=== PATIENT | male | born 1950 | race Caucasian/White ===

== ENCOUNTER 2016-10-31 07:41 | Inpatient (IN) | payer MEDICARE, OTHER ==
[2016-10-31] MEDS ORDERED: ALGINIC AC PO PRN (18:28)
[2016-10-31] MEDS ORDERED: MAG CARB PO PRN (18:28)
[2016-10-31] MEDS ORDERED: AL HYDROX PO PRN (18:28)
[2016-10-31] MEDS ORDERED: Non-Formulary Item 1 EACH (Ondansetron Hcl [Zofran] 4 MG) PO PRN (18:28)
[2016-10-31] MEDS: Acetaminophen/Codeine 30-300mg Tablet PO PRN (18:52)
[2016-10-31] MEDS: buPROPion HCl 100 MG TAB PO SCH (21:16)
[2016-10-31] MEDS: Metoprolol Tartrate 25 MG TAB PO SCH (21:16)
[2016-10-31] MEDS: Simvastatin 40 MG TAB PO SCH (21:17)
[2016-11-01] MEDS: Acetaminophen/Codeine 30-300mg Tablet PO PRN ×4 (01:14→22:22)
[2016-11-01] MEDS: Levothyroxine Sodium 100 MCG TAB PO SCH (05:50)
[2016-11-01] MEDS: Folic Acid 1 MG TAB PO SCH (09:03)
[2016-11-01] MEDS: Multivit, Therapeutic 1 TAB PO SCH (09:04)
[2016-11-01] MEDS: buPROPion HCl 100 MG TAB PO SCH ×2 (09:04→20:48)
[2016-11-01] MEDS: Lisinopril 5 MG TAB PO SCH ×2 (09:04→09:08)
[2016-11-01] MEDS: Escitalopram Oxalate 10 mg Tablet PO SCH (09:04)
[2016-11-01] MEDS: Fish Oil 1,000 MG CAP PO SCH ×2 (09:05→09:06)
[2016-11-01] MEDS: Digoxin 0.125 MG TAB PO SCH (09:05)
[2016-11-01] MEDS: Furosemide 40 MG TAB PO SCH ×2 (09:05→09:08)
[2016-11-01] MEDS: Metoprolol Tartrate 25 MG TAB PO SCH ×3 (09:05→20:48)
[2016-11-01] MEDS: Docusate 100 MG CAP PO SCH (09:06)
[2016-11-01] MEDS: ZINC SULFATE PO SCH (11:56)
[2016-11-01] MEDS: Simvastatin 40 MG TAB PO SCH (20:50)
[2016-11-02] MEDS: Acetaminophen/Codeine 30-300mg Tablet PO PRN ×3 (05:13→20:47)
[2016-11-02] MEDS: Levothyroxine Sodium 100 MCG TAB PO SCH (05:14)
--- NOTE | 2016-11-02 06:42 | HP ---
DATE OF ADMISSION: 10/31/2016 ATTENDING: Tabitha Stevens M.D. PRIMARY CARE PHYSICIAN: Aiden Ortiz M.D. REASON FOR ADMISSION: Skilled rehabilitation in [facility]. HISTORY OF PRESENT ILLNESS AND HOSPITAL COURSE: Mr. Almonte is a 66-year-old male with history of chronic alcoholism, frequent falls, abnormality of gait, hypertension, paroxysmal atrial fibrillation, chronic systolic heart failure and moderate coronary artery disease. Patient was transferred from [facility] in [place] after he was treated for altered mental status. Patient was a previous resident of [facility] under Dr. Aiden Ortiz's care. Per records, patient has been having frequent falls. He was initially sent to [facility] due to a fall. Then [facility] after he was given potassium chloride and fentanyl. He fell again in the penitentiary and was brought back to the emergency room, where he was reported to have alteration in mental status. Radiological images in the emergency room , ruled out fractures of any kind. He was found to have bilateral lower extremity edema as well as ascites and anasarca. The patient had a CT scan of the abdomen and pelvis, which showed no evidence of any acute traumatic injury per record. There was moderate volume ascites and some anasarca, a small bilateral pleural effusions and bilateral renal cysts, some mild bilateral nephrolithiasis without any obstructive uropathy and laparoscopic gastric band. There was no significant change from the previous study on 10/23/2016 per report. There was also a CT scan of the brain done, that showed no evidence of any acute intracranial abnormality. UTI was ruled out at that time. His white count remained normal. He remained afebrile. Ammonia level and thyroid function tests were also normal per report. He was seen by neurologist at that time due to altered mental status and it was felt that it was a result of his underlying chronic medical conditions that actually improved during the course of his hospital stay. At the time of date of discharge he was reported to be at baseline level of mental status as verified by his spouse per report. The patient was generally weak prior to discharge and was deemed severely deconditioned requiring rehabilitation. After rearranging facilities for halfway, it was a decision of the family to transfer to [facility] and not to go back to the previous facility where he was from. Upon admission, the patient has been stable. He had a smooth overnight course. He has been awake, alert, and able to express his needs. When seen today, the patient was resting in his bed. He is hard of hearing, but able to respond appropriately and answer questions as long as he heard the queries right. He reports that he is still weak and unable to ambulate at this time. No other new issues reported. The patient is a poor historian, most of the inflow of the history were taken from his medical records. PAST MEDICAL HISTORY: Hypertension, obesity, dyslipidemia, GERD, asthma, hypothyroidism, paroxysmal atrial fibrillation, chronic systolic heart failure, moderate coronary artery disease, history of medical noncompliance, history of unsteady gait and chronic alcoholism. PAST SURGICAL HISTORY: Laparoscopic gastric banding, cholecystectomy, left knee replacement, right ankle surgery, tonsillectomy, adenoidectomy, cholecystectomy, umbilical hernia repair. PSYCHIATRIC HISTORY: Anxiety, depression. SOCIAL HISTORY: History of alcoholism. He denies smoking. He denies any other illicit drug abuse. FAMILY HISTORY: Noncontributory. ALLERGIES: NKDA. CURRENT MEDICATIONS: Zocor 40 mg p.o. at bedtime, Synthroid 175 mcg p.o. daily , Toprol-XL 12.5 mg twice daily, aspirin 81 mg p.o. daily, folic acid 1 mg p.o. daily, Protonix 40 mg twice daily, acetaminophen with codeine, Tylenol #3 one tab q.6 hours p.r.n., amiodarone 200 mg p.o. daily, digoxin 0.125 mg p.o. daily , docusate 100 mg p.o. daily, Lexapro 20 mg p.o. daily, fish oil 1000 mg p.o. daily, folic acid 1 mg p.o. daily, furosemide 40 mg p.o. daily, levothyroxine should be 100 mcg p.o. daily, lisinopril 2.5 mg p.o. daily, metoprolol 12.5 mg p.o. b.i.d., multivitamins 1 tablet p.o. daily, Wellbutrin 100 mg p.o. b.i.d. REVIEW OF SYSTEMS: General: Denies fever or chills. Reports fatigue and general weakness, unknown weight changes with good appetite. HEENT: No acute visual changes or hearing changes. Of note, he is hard of hearing and wears hearing aid. Respiratory: Denies acute shortness of breath, wheezing or sputum production, bloody sputum, pain with breathing.Cardiac: No active chest pain, palpitations, cyanosis, or paroxysmal nocturnal dyspnea. He has history of bilateral lower leg edema/anasarca. GI: No nausea, vomiting, abdominal pain , diarrhea, constipation. Genitourinary: No urgency, frequency, dysuria, nocturia. He is voiding freely with dark urine. Musculoskeletal: Reports intermittent arthralgia/myalgia. Neuro: No focal numbness, focal weakness, seizures, tics or tremors. Psychiatric: Reports anxiety, depression. No hallucinations. No suicidal thoughts. SKIN: No pruritus, jaundice. PHYSICAL EXAMINATION: VITAL SIGNS: Blood pressure 108/62, temperature 97.4, pulse 61, respiration rate 18, O2 sats 94% at room air. GENERAL: The patient is awake, alert, oriented x2. He answers questions with appropriateness if he hears the queries right. Comfortable in exam. No obvious acute distress. HEENT: Atraumatic. PERRL, intact EOM. Anicteric sclerae. Oral mucosa is moist. NECK: Supple. No LAD, no JVD, no meningeal signs of irritation. LUNGS: Normal excursion, nonlabored breathing. No rales, no rhonchi or wheezes. CARDIAC: Rate controlled. Normal S1 and S2. No murmurs. ABDOMEN: Obese with ascites. Positive bowel sounds in 4 quadrants, nontender. No guarding, no rigidity, no rebound. Negative CVA tenderness bilaterally. EXTREMITIES: Bilateral leg edema, pitting 2+. Right knee slightly swollen compared to the left, no erythema noted.Not warmth to touch. NEUROLOGIC: Nonfocal, moves all extremities symmetrically. Speech normal, DTRs 2+ unsteady gait. LABORATORY: Most recent labs 10/31/2016, WBC 4.4, hemoglobin 11.8, hematocrit 36.7, MCV 99.9, platelets 224. Chemistry 10/31/2016, sodium 136, potassium 3.2 , chloride 100, carbon dioxide 29, BUN 13, creatinine 0.73, estimated GFR 90, glucose 64, POC glucose 84, calcium 8, ammonia on 10/28/2016 was 47, repeat at 10/28/2016 at 1219 was 49. Toxicology 10/26 digoxin less than 0.15, salicylate is less than, acetaminophen less than, plasma alcohol less than 10, opioids detected on 10/25/2016, benzos detected on 10/25/2016. ASSESSMENT AND PLAN: 1. Physical deconditioning. 2. Acute on chronic systolic heart failure. 3. Encephalopathy, unspecified, improved, now back to baseline mental status. 4. ETOH abuse and complicated with ascites and anasarca, which appears to be a chronic finding, asymptomatic. 5. Hypertension. 6. Anxiety, depression. 7. General weakness. 8. Unsteady gait. 9. History of falls. The patient is admitted to [facility] for purposes of skilled rehabilitation. PT, OT will be consulted for strengthening and gait training. We will continue all current medications. Routine digoxin, renal electrolytes and renal function monitoring. Fall precautions. Gastrointestinal prophylaxis with PPI. Deep venous thrombosis prophylaxis with SCD. Further recommendations depending on the hospital course. ESTIMATED LENGTH OF STAY: 1-2 weeks. CODE STATUS: The patient reports FULL CODE. MTDD
[2016-11-02] MEDS: Escitalopram Oxalate 10 mg Tablet PO SCH (08:15)
[2016-11-02] MEDS: Folic Acid 1 MG TAB PO SCH (08:15)
[2016-11-02] MEDS: Digoxin 0.125 MG TAB PO SCH (08:15)
[2016-11-02] MEDS: Lisinopril 5 MG TAB PO SCH (08:16)
[2016-11-02] MEDS: Fish Oil 1,000 MG CAP PO SCH ×2 (08:16→08:22)
[2016-11-02] MEDS: Multivit, Therapeutic 1 TAB PO SCH (08:16)
[2016-11-02] MEDS: buPROPion HCl 100 MG TAB PO SCH ×2 (08:16→20:43)
[2016-11-02] MEDS: Furosemide 40 MG TAB PO SCH (08:16)
[2016-11-02] MEDS: Metoprolol Tartrate 25 MG TAB PO SCH ×2 (08:17→20:44)
[2016-11-02] MEDS: Docusate 100 MG CAP PO SCH (08:17)
[2016-11-02] MEDS: ZINC SULFATE PO SCH (08:24)
[2016-11-02] MEDS ORDERED: traMADol HCl 50 MG TAB PO PRN (10:39)
[2016-11-02] MEDS ORDERED: Potassium Chloride 20 MEQ TAB PO SCH (10:45)
[2016-11-02] MEDS: Simvastatin 40 MG TAB PO SCH (20:43)
[2016-11-03] MEDS: Levothyroxine Sodium 100 MCG TAB PO SCH (05:22)
[2016-11-03 07:33] LABS: Digoxin 0.78 ng/mL (0.8-2.0)
[2016-11-03 07:35] LABS: ALT (SGPT) 20 U/L (8-55); AST (SGOT) 33 U/L (5-34); Albumin 2.3 g/dL (3.4-4.8); Alkaline Phosphatase 87 U/L (40-150); Anion Gap 11 mmol/L (10-20); BUN (Urea Nitrogen) 10 mg/dL (8.4-25.7); Bilirubin, Total 1.1 mg/dL (0.2-1.2); Calc. Creatinine Clearance 194 mL/min (70-130); Carbon Dioxide 31 mmol/L (23-31); Chloride 98 mmol/L (98-107); Estimated GFR-MDRD Greater than 90; Globulin 2.4 g/dL (2.4-3.5); Glucose 87 mg/dL (80-115); Protein, Total 4.7 g/dL (5.8-8.1); Sodium 137 mmol/L (136-145)
[2016-11-03] MEDS: Furosemide 40 MG TAB PO SCH (07:47)
[2016-11-03] MEDS: Potassium Chloride 20 MEQ TAB PO SCH (07:47)
[2016-11-03 08:51] LABS: #Basophils 0.1 thou/uL (0.0-0.2); #Eosinphils 0.3 thou/uL (0.0-0.7); #Lymphocytes 1.6 thou/uL (1.20-3.40); #Monocytes 0.6 thou/uL (0.11-0.59); #Neutrophils 3.1 thou/uL (1.40-6.50); %Eosinophils 4.8 % (0.0-10.0); %Lymphocytes 29.2 % (21.0-51.0); %Monocytes 10.4 % (0.0-10.0); %Neutrophils 54.6 % (42.0-75.0); Hemoglobin 11.6 g/dL (14.0-18.0); Mean Corpuscular Hemoglobin 32.7 pg (27.0-31.0); Mean Corpuscular Volume 96.1 fl (80.0-94.0); Mean Platelet Volume 8.2 fL (7.4-10.4); Platelet Count 200 thou/uL (130-400); RBC Distribution Width 15.5 % (11.5-14.5); Red Blood Cell (RBC) Count 3.54 mill/uL (4.70-6.10); White Blood Cell (WBC) Count 5.6 thou/uL (4.8-10.8)
[2016-11-03] MEDS: Lisinopril 5 MG TAB PO SCH (09:24)
[2016-11-03] MEDS: Multivit, Therapeutic 1 TAB PO SCH (09:24)
[2016-11-03] MEDS: Digoxin 0.125 MG TAB PO SCH (09:24)
[2016-11-03] MEDS: buPROPion HCl 100 MG TAB PO SCH ×2 (09:24→20:34)
[2016-11-03] MEDS: Fish Oil 1,000 MG CAP PO SCH (09:25)
[2016-11-03] MEDS: Folic Acid 1 MG TAB PO SCH (09:25)
[2016-11-03] MEDS: Escitalopram Oxalate 10 mg Tablet PO SCH (09:25)
[2016-11-03] MEDS: Docusate 100 MG CAP PO SCH (09:25)
[2016-11-03] MEDS: Metoprolol Tartrate 25 MG TAB PO SCH ×2 (09:26→20:34)
[2016-11-03] MEDS: ZINC SULFATE PO SCH (09:27)
[2016-11-03] MEDS ORDERED: Mag-Al Plus 1200 MG/1200 MG/120 MG/30 ML UDCUP PO PRN (09:55)
[2016-11-03] MEDS ORDERED: Zinc Gluconate 50 MG TAB PO SCH (12:00)
[2016-11-03] MEDS: Acetaminophen/Codeine 30-300mg Tablet PO PRN ×2 (12:04→19:14)
[2016-11-03] MEDS: Simvastatin 40 MG TAB PO SCH (20:34)
[2016-11-04] MEDS ORDERED: traMADol HCl 50 MG TAB PO PRN (06:16)
[2016-11-04] MEDS: Levothyroxine Sodium 100 MCG TAB PO SCH (06:21)
[2016-11-04] MEDS: Potassium Chloride 20 MEQ TAB PO SCH (07:22)
[2016-11-04] MEDS: Furosemide 40 MG TAB PO SCH (07:22)
[2016-11-04] MEDS: buPROPion HCl 100 MG TAB PO SCH ×2 (08:17→20:51)
[2016-11-04] MEDS: Escitalopram Oxalate 10 mg Tablet PO SCH (08:18)
[2016-11-04] MEDS: Fish Oil 1,000 MG CAP PO SCH (08:18)
[2016-11-04] MEDS: Digoxin 0.125 MG TAB PO SCH (08:18)
[2016-11-04] MEDS: Folic Acid 1 MG TAB PO SCH (08:18)
[2016-11-04] MEDS: Metoprolol Tartrate 25 MG TAB PO SCH ×2 (08:18→20:53)
[2016-11-04] MEDS: Multivit, Therapeutic 1 TAB PO SCH (08:19)
[2016-11-04] MEDS: Lisinopril 5 MG TAB PO SCH (08:19)
[2016-11-04] MEDS: Docusate 100 MG CAP PO SCH (08:20)
[2016-11-04] MEDS: Acetaminophen/Codeine 30-300mg Tablet PO PRN ×3 (08:22→21:23)
[2016-11-04] MEDS: Zinc Gluconate 50 MG TAB PO SCH (08:22)
[2016-11-04] MEDS: Simvastatin 40 MG TAB PO SCH (20:53)
[2016-11-05] MEDS: Levothyroxine Sodium 100 MCG TAB PO SCH (05:47)
[2016-11-05] MEDS: Acetaminophen/Codeine 30-300mg Tablet PO PRN ×3 (05:49→22:04)
[2016-11-05] MEDS: Metoprolol Tartrate 25 MG TAB PO SCH ×2 (08:10→21:07)
[2016-11-05] MEDS: Zinc Gluconate 50 MG TAB PO SCH (08:10)
[2016-11-05] MEDS: Potassium Chloride 20 MEQ TAB PO SCH (08:10)
[2016-11-05] MEDS: Furosemide 40 MG TAB PO SCH (08:10)
[2016-11-05] MEDS: buPROPion HCl 100 MG TAB PO SCH ×2 (08:11→21:06)
[2016-11-05] MEDS: Lisinopril 5 MG TAB PO SCH (08:11)
[2016-11-05] MEDS: Multivit, Therapeutic 1 TAB PO SCH (08:11)
[2016-11-05] MEDS: Digoxin 0.125 MG TAB PO SCH (08:11)
[2016-11-05] MEDS: Escitalopram Oxalate 10 mg Tablet PO SCH (08:11)
[2016-11-05] MEDS: Docusate 100 MG CAP PO SCH (08:11)
[2016-11-05] MEDS: Folic Acid 1 MG TAB PO SCH (08:14)
[2016-11-05] MEDS: Fish Oil 1,000 MG CAP PO SCH (08:14)
[2016-11-05] MEDS: Simvastatin 40 MG TAB PO SCH (21:06)
[2016-11-06] MEDS: Levothyroxine Sodium 100 MCG TAB PO SCH (06:14)
[2016-11-06] MEDS: Furosemide 40 MG TAB PO SCH (06:15)
[2016-11-06] MEDS: Acetaminophen/Codeine 30-300mg Tablet PO PRN ×2 (07:27→16:34)
[2016-11-06] MEDS: Zinc Gluconate 50 MG TAB PO SCH (08:18)
[2016-11-06] MEDS: Potassium Chloride 20 MEQ TAB PO SCH (08:18)
[2016-11-06] MEDS: Lisinopril 5 MG TAB PO SCH (08:18)
[2016-11-06] MEDS: Multivit, Therapeutic 1 TAB PO SCH (08:18)
[2016-11-06] MEDS: Escitalopram Oxalate 10 mg Tablet PO SCH (08:19)
[2016-11-06] MEDS: buPROPion HCl 100 MG TAB PO SCH ×2 (08:19→20:42)
[2016-11-06] MEDS: Fish Oil 1,000 MG CAP PO SCH (08:19)
[2016-11-06] MEDS: Digoxin 0.125 MG TAB PO SCH (08:19)
[2016-11-06] MEDS: Metoprolol Tartrate 25 MG TAB PO SCH ×2 (08:20→20:43)
[2016-11-06] MEDS: Docusate 100 MG CAP PO SCH (08:20)
[2016-11-06] MEDS: Folic Acid 1 MG TAB PO SCH (08:20)
[2016-11-06] MEDS: Simvastatin 40 MG TAB PO SCH (20:43)
[2016-11-07] MEDS: Acetaminophen/Codeine 30-300mg Tablet PO PRN ×3 (01:16→16:57)
[2016-11-07] MEDS: Levothyroxine Sodium 100 MCG TAB PO SCH ×2 (05:58→05:59)
[2016-11-07] MEDS: Furosemide 40 MG TAB PO SCH (07:58)
[2016-11-07] MEDS: Potassium Chloride 20 MEQ TAB PO SCH (07:58)
[2016-11-07] MEDS: Metoprolol Tartrate 25 MG TAB PO SCH ×2 (08:58→20:34)
[2016-11-07] MEDS: Zinc Gluconate 50 MG TAB PO SCH (08:58)
[2016-11-07] MEDS: buPROPion HCl 100 MG TAB PO SCH ×2 (08:59→20:33)
[2016-11-07] MEDS: Fish Oil 1,000 MG CAP PO SCH (08:59)
[2016-11-07] MEDS: Folic Acid 1 MG TAB PO SCH (09:00)
[2016-11-07] MEDS: Lisinopril 5 MG TAB PO SCH (09:00)
[2016-11-07] MEDS: Digoxin 0.125 MG TAB PO SCH (09:00)
[2016-11-07] MEDS: Escitalopram Oxalate 10 mg Tablet PO SCH (09:00)
[2016-11-07] MEDS: Multivit, Therapeutic 1 TAB PO SCH (09:01)
[2016-11-07] MEDS: Docusate 100 MG CAP PO SCH (09:01)
[2016-11-07] MEDS: Simvastatin 40 MG TAB PO SCH (20:34)
[2016-11-07] MEDS ORDERED: Acetaminophen/Codeine 30-300mg Tablet PO SCH (21:15)
[2016-11-08] MEDS: Furosemide 40 MG TAB PO SCH (08:23)
[2016-11-08] MEDS: Potassium Chloride 20 MEQ TAB PO SCH (08:23)
[2016-11-08] MEDS: Fish Oil 1,000 MG CAP PO SCH (08:31)
[2016-11-08] MEDS: buPROPion HCl 100 MG TAB PO SCH ×2 (08:32→20:15)
[2016-11-08] MEDS: Zinc Gluconate 50 MG TAB PO SCH (08:32)
[2016-11-08] MEDS: Docusate 100 MG CAP PO SCH (08:33)
[2016-11-08] MEDS: Digoxin 0.125 MG TAB PO SCH (08:33)
[2016-11-08] MEDS: Folic Acid 1 MG TAB PO SCH (08:33)
[2016-11-08] MEDS: Multivit, Therapeutic 1 TAB PO SCH (08:33)
[2016-11-08] MEDS: Escitalopram Oxalate 10 mg Tablet PO SCH (08:33)
[2016-11-08] MEDS: Metoprolol Tartrate 25 MG TAB PO SCH ×2 (08:34→20:14)
[2016-11-08] MEDS: Lisinopril 5 MG TAB PO SCH (08:34)
[2016-11-08] MEDS: Acetaminophen/Codeine 30-300mg Tablet PO PRN ×2 (14:19→20:15)
[2016-11-08] MEDS: Simvastatin 40 MG TAB PO SCH (20:15)
[2016-11-09] MEDS: Acetaminophen/Codeine 30-300mg Tablet PO PRN ×3 (03:54→19:33)
[2016-11-09] MEDS: Levothyroxine Sodium 100 MCG TAB PO SCH (06:17)
[2016-11-09] MEDS: Furosemide 40 MG TAB PO SCH (08:14)
[2016-11-09] MEDS: Potassium Chloride 20 MEQ TAB PO SCH (08:14)
[2016-11-09] MEDS: buPROPion HCl 100 MG TAB PO SCH ×2 (08:18→21:17)
[2016-11-09] MEDS: Zinc Gluconate 50 MG TAB PO SCH (08:18)
[2016-11-09] MEDS: Multivit, Therapeutic 1 TAB PO SCH (08:18)
[2016-11-09] MEDS: Fish Oil 1,000 MG CAP PO SCH (08:18)
[2016-11-09] MEDS: Docusate 100 MG CAP PO SCH (08:18)
[2016-11-09] MEDS: Folic Acid 1 MG TAB PO SCH (08:19)
[2016-11-09] MEDS: Escitalopram Oxalate 10 mg Tablet PO SCH (08:19)
[2016-11-09] MEDS: Lisinopril 5 MG TAB PO SCH (08:19)
[2016-11-09] MEDS: Digoxin 0.125 MG TAB PO SCH (08:20)
[2016-11-09] MEDS: Metoprolol Tartrate 25 MG TAB PO SCH ×2 (08:20→21:18)
[2016-11-09] MEDS ORDERED: Acetaminophen/Codeine 30-300mg Tablet ONE (16:03)
[2016-11-09] MEDS: Simvastatin 40 MG TAB PO SCH (21:18)
[2016-11-10] MEDS: Levothyroxine Sodium 100 MCG TAB PO SCH (06:05)
[2016-11-10] MEDS: Furosemide 40 MG TAB PO SCH (07:37)
[2016-11-10] MEDS: Potassium Chloride 20 MEQ TAB PO SCH (07:37)
[2016-11-10] MEDS: Acetaminophen/Codeine 30-300mg Tablet PO PRN ×3 (07:41→20:34)
[2016-11-10] MEDS: Fish Oil 1,000 MG CAP PO SCH (09:25)
[2016-11-10] MEDS: Folic Acid 1 MG TAB PO SCH (09:26)
[2016-11-10] MEDS: buPROPion HCl 100 MG TAB PO SCH ×2 (09:26→20:32)
[2016-11-10] MEDS: Zinc Gluconate 50 MG TAB PO SCH (09:27)
[2016-11-10] MEDS: Lisinopril 5 MG TAB PO SCH (09:27)
[2016-11-10] MEDS: Multivit, Therapeutic 1 TAB PO SCH (09:27)
[2016-11-10] MEDS: Escitalopram Oxalate 10 mg Tablet PO SCH (09:27)
[2016-11-10] MEDS: Docusate 100 MG CAP PO SCH (09:28)
[2016-11-10] MEDS: Digoxin 0.125 MG TAB PO SCH (09:29)
[2016-11-10] MEDS: Metoprolol Tartrate 25 MG TAB PO SCH ×2 (09:29→20:33)
[2016-11-10] MEDS: Simvastatin 40 MG TAB PO SCH (20:34)
[2016-11-11] MEDS: Acetaminophen/Codeine 30-300mg Tablet PO PRN ×3 (02:43→19:10)
[2016-11-11] MEDS: Levothyroxine Sodium 100 MCG TAB PO SCH (05:19)
[2016-11-11] MEDS: Multivit, Therapeutic 1 TAB PO SCH (08:29)
[2016-11-11] MEDS: Fish Oil 1,000 MG CAP PO SCH (08:29)
[2016-11-11] MEDS: buPROPion HCl 100 MG TAB PO SCH ×2 (08:29→20:37)
[2016-11-11] MEDS: Zinc Gluconate 50 MG TAB PO SCH (08:29)
[2016-11-11] MEDS: Potassium Chloride 20 MEQ TAB PO SCH (08:29)
[2016-11-11] MEDS: Metoprolol Tartrate 25 MG TAB PO SCH ×2 (08:30→20:38)
[2016-11-11] MEDS: Docusate 100 MG CAP PO SCH (08:30)
[2016-11-11] MEDS: Lisinopril 5 MG TAB PO SCH (08:30)
[2016-11-11] MEDS: Folic Acid 1 MG TAB PO SCH (08:30)
[2016-11-11] MEDS: Furosemide 40 MG TAB PO SCH (08:31)
[2016-11-11] MEDS: Escitalopram Oxalate 10 mg Tablet PO SCH (08:31)
[2016-11-11] MEDS: Digoxin 0.125 MG TAB PO SCH (08:31)
[2016-11-11] MEDS ORDERED: Acetaminophen 500 MG TAB PO PRN (16:22)
[2016-11-11] MEDS: Acetaminophen 500 MG TAB PO PRN (16:53)
[2016-11-11] MEDS: Simvastatin 40 MG TAB PO SCH (20:37)
[2016-11-12] MEDS: Acetaminophen/Codeine 30-300mg Tablet PO PRN ×3 (00:50→15:15)
[2016-11-12] MEDS: Levothyroxine Sodium 100 MCG TAB PO SCH (05:10)
[2016-11-12] MEDS: Potassium Chloride 20 MEQ TAB PO SCH (08:27)
[2016-11-12] MEDS: Digoxin 0.125 MG TAB PO SCH (08:27)
[2016-11-12] MEDS: Metoprolol Tartrate 25 MG TAB PO SCH ×2 (08:27→21:09)
[2016-11-12] MEDS: Escitalopram Oxalate 10 mg Tablet PO SCH (08:27)
[2016-11-12] MEDS: Furosemide 40 MG TAB PO SCH (08:27)
[2016-11-12] MEDS: buPROPion HCl 100 MG TAB PO SCH ×2 (08:28→21:07)
[2016-11-12] MEDS: Docusate 100 MG CAP PO SCH (08:28)
[2016-11-12] MEDS: Lisinopril 5 MG TAB PO SCH (08:29)
[2016-11-12] MEDS: Folic Acid 1 MG TAB PO SCH (08:29)
[2016-11-12] MEDS: Fish Oil 1,000 MG CAP PO SCH (08:29)
[2016-11-12] MEDS: Multivit, Therapeutic 1 TAB PO SCH (08:29)
[2016-11-12] MEDS: Zinc Gluconate 50 MG TAB PO SCH (08:30)
[2016-11-12] MEDS ORDERED: Cyclobenzaprine 10 MG TAB PO PRN (21:00)
[2016-11-12] MEDS: Simvastatin 40 MG TAB PO SCH (21:08)
[2016-11-13] MEDS: Acetaminophen/Codeine 30-300mg Tablet PO PRN ×3 (00:14→20:10)
[2016-11-13] MEDS: Levothyroxine Sodium 100 MCG TAB PO SCH (05:41)
[2016-11-13] MEDS: Furosemide 40 MG TAB PO SCH (08:03)
[2016-11-13] MEDS: Potassium Chloride 20 MEQ TAB PO SCH (08:03)
[2016-11-13] MEDS: Zinc Gluconate 50 MG TAB PO SCH (08:53)
[2016-11-13] MEDS: Lisinopril 5 MG TAB PO SCH (08:54)
[2016-11-13] MEDS: Docusate 100 MG CAP PO SCH (08:58)
[2016-11-13] MEDS: buPROPion HCl 100 MG TAB PO SCH ×2 (08:58→20:09)
[2016-11-13] MEDS: Multivit, Therapeutic 1 TAB PO SCH (08:58)
[2016-11-13] MEDS: Folic Acid 1 MG TAB PO SCH (08:59)
[2016-11-13] MEDS: Metoprolol Tartrate 25 MG TAB PO SCH ×2 (08:59→20:10)
[2016-11-13] MEDS: Digoxin 0.125 MG TAB PO SCH (09:00)
[2016-11-13] MEDS: Fish Oil 1,000 MG CAP PO SCH (09:00)
[2016-11-13] MEDS: Escitalopram Oxalate 10 mg Tablet PO SCH (09:00)
[2016-11-13] MEDS: Simvastatin 40 MG TAB PO SCH (20:10)
[2016-11-14] MEDS: Acetaminophen/Codeine 30-300mg Tablet PO PRN (03:08)
[2016-11-14] MEDS: Levothyroxine Sodium 100 MCG TAB PO SCH (05:40)
[2016-11-14] MEDS: Potassium Chloride 20 MEQ TAB PO SCH (08:35)
[2016-11-14] MEDS: Furosemide 40 MG TAB PO SCH (08:35)
[2016-11-14] MEDS: Multivit, Therapeutic 1 TAB PO SCH (08:46)
[2016-11-14] MEDS: Zinc Gluconate 50 MG TAB PO SCH (08:46)
[2016-11-14] MEDS: Fish Oil 1,000 MG CAP PO SCH (08:46)
[2016-11-14] MEDS: Folic Acid 1 MG TAB PO SCH (08:46)
[2016-11-14] MEDS: Digoxin 0.125 MG TAB PO SCH (08:47)
[2016-11-14] MEDS: Escitalopram Oxalate 10 mg Tablet PO SCH (08:47)
[2016-11-14] MEDS: Metoprolol Tartrate 25 MG TAB PO SCH ×2 (08:47→20:33)
[2016-11-14] MEDS: Lisinopril 5 MG TAB PO SCH (08:48)
[2016-11-14] MEDS: buPROPion HCl 100 MG TAB PO SCH ×2 (08:52→20:32)
[2016-11-14] MEDS: Docusate 100 MG CAP PO SCH (08:52)
[2016-11-14 12:27] LABS: ALT (SGPT) 22 U/L (8-55); AST (SGOT) 32 U/L (5-34); Albumin 2.6 g/dL (3.4-4.8); Alkaline Phosphatase 91 U/L (40-150); Anion Gap 12 mmol/L (10-20); BUN (Urea Nitrogen) 6 mg/dL (8.4-25.7); Bilirubin, Total 0.9 mg/dL (0.2-1.2); Calc. Creatinine Clearance 198 mL/min (70-130); Calcium 8.2 mg/dL (7.8-10.44); Carbon Dioxide 27 mmol/L (23-31); Chloride 97 mmol/L (98-107); Estimated GFR-MDRD Greater than 90; Globulin 2.6 g/dL (2.4-3.5); Glucose 77 mg/dL (80-115); Potassium 3.4 mmol/L (3.5-5.1); Protein, Total 5.2 g/dL (5.8-8.1); Sodium 133 mmol/L (136-145)
[2016-11-14 14:30] LABS: Digoxin 0.96 ng/mL (0.8-2.0)
[2016-11-14 18:40] LABS: Clarity Clear (Clear); Leukocyte Negative (Negative); Nitrite Negative (Negative); Protein, Urine (Dipstick) Negative (Neg-Trace); Specific Gravity, Urine 1.015 (1.005-1.030); pH, Urine 7.5 (5.0-9.0)
[2016-11-14 18:41] LABS: Bacteria/HPF Rare-Few HPF (None Seen); Bilirubin Negative (Negative); Blood, Urine Negative (Negative); Glucose, Urine (Dipstick) Negative (Negative); RBC/HPF 0-3 HPF (0-3); Squamous Epithelial 0-3 HPF (0-3); Urobilinogen 0.2 mg/dL (0.2-1.0); WBC/HPF None Seen HPF (0-3)
[2016-11-14] MEDS: Acetaminophen 500 MG TAB PO PRN (20:32)
[2016-11-14] MEDS: Simvastatin 40 MG TAB PO SCH (20:33)
[2016-11-15] MEDS: Acetaminophen/Codeine 30-300mg Tablet PO PRN ×4 (02:02→20:28)
[2016-11-15] MEDS: Levothyroxine Sodium 100 MCG TAB PO SCH (05:50)
[2016-11-15] MEDS: Zinc Gluconate 50 MG TAB PO SCH (08:24)
[2016-11-15] MEDS: Multivit, Therapeutic 1 TAB PO SCH (08:24)
[2016-11-15] MEDS: Folic Acid 1 MG TAB PO SCH (08:24)
[2016-11-15] MEDS: Furosemide 40 MG TAB PO SCH (08:24)
[2016-11-15] MEDS: buPROPion HCl 100 MG TAB PO SCH (08:24)
[2016-11-15] MEDS: Potassium Chloride 20 MEQ TAB PO SCH (08:25)
[2016-11-15] MEDS: Fish Oil 1,000 MG CAP PO SCH (08:25)
[2016-11-15] MEDS: Lisinopril 5 MG TAB PO SCH (08:25)
[2016-11-15] MEDS: Escitalopram Oxalate 10 mg Tablet PO SCH (08:25)
[2016-11-15] MEDS: Digoxin 0.125 MG TAB PO SCH (08:26)
[2016-11-15] MEDS: Metoprolol Tartrate 25 MG TAB PO SCH ×2 (08:26→20:29)
[2016-11-15] MEDS: Docusate 100 MG CAP PO SCH (08:28)
[2016-11-15] MEDS: Simvastatin 40 MG TAB PO SCH (20:30)
[2016-11-16] MEDS: Acetaminophen/Codeine 30-300mg Tablet PO PRN (02:53)
[2016-11-16] MEDS: Levothyroxine Sodium 100 MCG TAB PO SCH (06:02)
[2016-11-16] MEDS: Potassium Chloride 20 MEQ TAB PO SCH (08:27)
[2016-11-16] MEDS: Folic Acid 1 MG TAB PO SCH (08:27)
[2016-11-16] MEDS: Digoxin 0.125 MG TAB PO SCH (08:27)
[2016-11-16] MEDS: buPROPion HCl 100 MG TAB PO SCH (08:27)
[2016-11-16] MEDS: Docusate 100 MG CAP PO SCH (08:27)
[2016-11-16] MEDS: Escitalopram Oxalate 10 mg Tablet PO SCH (08:28)
[2016-11-16] MEDS: Zinc Gluconate 50 MG TAB PO SCH (08:28)
[2016-11-16] MEDS: Fish Oil 1,000 MG CAP PO SCH (08:28)
[2016-11-16] MEDS: Metoprolol Tartrate 25 MG TAB PO SCH ×2 (08:28→21:02)
[2016-11-16] MEDS: Lisinopril 5 MG TAB PO SCH (08:28)
[2016-11-16] MEDS: Furosemide 40 MG TAB PO SCH (08:29)
[2016-11-16] MEDS: Multivit, Therapeutic 1 TAB PO SCH (08:29)
[2016-11-16] MEDS: Acetaminophen 500 MG TAB PO PRN (13:02)
[2016-11-16] MEDS: Simvastatin 40 MG TAB PO SCH (21:02)
[2016-11-17] MEDS: Acetaminophen/Codeine 30-300mg Tablet PO PRN ×2 (04:27→22:15)
[2016-11-17] MEDS: Levothyroxine Sodium 100 MCG TAB PO SCH (04:28)
[2016-11-17] MEDS: Furosemide 40 MG TAB PO SCH (08:20)
[2016-11-17] MEDS: Potassium Chloride 20 MEQ TAB PO SCH (08:20)
[2016-11-17] MEDS: Folic Acid 1 MG TAB PO SCH (08:21)
[2016-11-17] MEDS: Docusate 100 MG CAP PO SCH (08:21)
[2016-11-17] MEDS: Zinc Gluconate 50 MG TAB PO SCH (08:21)
[2016-11-17] MEDS: Fish Oil 1,000 MG CAP PO SCH (08:21)
[2016-11-17] MEDS: buPROPion HCl 100 MG TAB PO SCH (08:21)
[2016-11-17] MEDS: Multivit, Therapeutic 1 TAB PO SCH (08:22)
[2016-11-17] MEDS: Lisinopril 5 MG TAB PO SCH (08:22)
[2016-11-17] MEDS: Metoprolol Tartrate 25 MG TAB PO SCH ×2 (08:23→22:01)
[2016-11-17] MEDS: Digoxin 0.125 MG TAB PO SCH (08:23)
[2016-11-17] MEDS: Escitalopram Oxalate 10 mg Tablet PO SCH (08:27)
[2016-11-17] MEDS ORDERED: Thiamine HCl 200 MG/2 ML VIAL SLOW IVP SCH ×2 (09:15→15:00)
[2016-11-17] MEDS ORDERED: Thiamine HCl 200 MG/2 ML VIAL IVPB SCH (10:30)
[2016-11-17] MEDS: ADMIXTURE FEE IVPB SCH ×2 (14:35→22:17)
[2016-11-17] MEDS: SODIUM CHLORIDE IVPB SCH ×2 (14:35→22:17)
[2016-11-17] MEDS: THIAMINE HCL IVPB SCH ×2 (14:35→22:17)
[2016-11-17] MEDS: Simvastatin 40 MG TAB PO SCH (22:02)
[2016-11-17] MEDS ORDERED: [UNRECOGNIZED DRUG - OTHER] ONE (22:13)
[2016-11-17] MEDS: traZODone HCl 50 MG TAB PO PRN (22:15)
[2016-11-18] MEDS: Levothyroxine Sodium 100 MCG TAB PO SCH (06:04)
[2016-11-18] MEDS: Furosemide 40 MG TAB PO SCH (08:11)
[2016-11-18] MEDS: Potassium Chloride 20 MEQ TAB PO SCH (08:11)
[2016-11-18] MEDS: buPROPion HCl 100 MG TAB PO SCH (08:12)
[2016-11-18] MEDS: Digoxin 0.125 MG TAB PO SCH (08:13)
[2016-11-18] MEDS: Lisinopril 5 MG TAB PO SCH (08:13)
[2016-11-18] MEDS: Folic Acid 1 MG TAB PO SCH (08:14)
[2016-11-18] MEDS: Zinc Gluconate 50 MG TAB PO SCH (08:14)
[2016-11-18] MEDS: Metoprolol Tartrate 25 MG TAB PO SCH ×2 (08:14→20:30)
[2016-11-18] MEDS: Docusate 100 MG CAP PO SCH (08:14)
[2016-11-18] MEDS: Multivit, Therapeutic 1 TAB PO SCH (08:14)
[2016-11-18] MEDS: Escitalopram Oxalate 10 mg Tablet PO SCH (08:14)
[2016-11-18] MEDS: Fish Oil 1,000 MG CAP PO SCH (08:15)
[2016-11-18] MEDS: ADMIXTURE FEE IVPB SCH ×3 (08:15→20:34)
[2016-11-18] MEDS: THIAMINE HCL IVPB SCH ×3 (08:15→20:34)
[2016-11-18] MEDS: SODIUM CHLORIDE IVPB SCH ×3 (08:15→20:34)
[2016-11-18] MEDS ORDERED: Haloperidol Lactate 5 MG/ML VIAL IM PRN (17:24)
[2016-11-18] MEDS ORDERED: Lorazepam 2 MG/ML VIAL SLOW IVP PRN (17:25)
[2016-11-18] MEDS: Bupropion 100 MG SR TAB PO SCH (20:30)
[2016-11-18] MEDS: Simvastatin 40 MG TAB PO SCH (20:30)
[2016-11-19] MEDS: Levothyroxine Sodium 100 MCG TAB PO SCH (05:43)
[2016-11-19] MEDS ORDERED: Sodium Chloride 0.9% 20 ML ONE (08:01)
[2016-11-19] MEDS ORDERED: Bupropion 100 MG SR TAB PO SCH (09:00)
[2016-11-19] MEDS: Digoxin 0.125 MG TAB PO SCH (09:03)
[2016-11-19] MEDS: Furosemide 40 MG TAB PO SCH (09:03)
[2016-11-19] MEDS: Multivit, Therapeutic 1 TAB PO SCH (09:03)
[2016-11-19] MEDS: Folic Acid 1 MG TAB PO SCH (09:03)
[2016-11-19] MEDS: Zinc Gluconate 50 MG TAB PO SCH (09:03)
[2016-11-19] MEDS: Bupropion 100 MG SR TAB PO SCH ×2 (09:03→20:17)
[2016-11-19] MEDS: Docusate 100 MG CAP PO SCH (09:03)
[2016-11-19] MEDS: Escitalopram Oxalate 10 mg Tablet PO SCH (09:04)
[2016-11-19] MEDS: Lisinopril 5 MG TAB PO SCH (09:04)
[2016-11-19] MEDS: Potassium Chloride 20 MEQ TAB PO SCH (09:05)
[2016-11-19] MEDS: Fish Oil 1,000 MG CAP PO SCH (09:05)
[2016-11-19] MEDS: SODIUM CHLORIDE IVPB SCH (09:15)
[2016-11-19] MEDS: Metoprolol Tartrate 25 MG TAB PO SCH ×2 (09:15→20:16)
[2016-11-19] MEDS: ADMIXTURE FEE IVPB SCH (09:15)
[2016-11-19] MEDS: THIAMINE HCL IVPB SCH (09:15)
[2016-11-19] MEDS: Simvastatin 40 MG TAB PO SCH (20:17)
[2016-11-20] MEDS: Levothyroxine Sodium 100 MCG TAB PO SCH (05:28)
[2016-11-20] MEDS: Furosemide 40 MG TAB PO SCH (08:15)
[2016-11-20] MEDS: Docusate 100 MG CAP PO SCH (08:15)
[2016-11-20] MEDS: Bupropion 100 MG SR TAB PO SCH ×2 (08:16→20:08)
[2016-11-20] MEDS: Lisinopril 5 MG TAB PO SCH (08:16)
[2016-11-20] MEDS: Multivit, Therapeutic 1 TAB PO SCH (08:16)
[2016-11-20] MEDS: Metoprolol Tartrate 25 MG TAB PO SCH ×2 (08:17→20:06)
[2016-11-20] MEDS: Folic Acid 1 MG TAB PO SCH (08:17)
[2016-11-20] MEDS: Escitalopram Oxalate 10 mg Tablet PO SCH (08:17)
[2016-11-20] MEDS: Fish Oil 1,000 MG CAP PO SCH (08:18)
[2016-11-20] MEDS: SODIUM CHLORIDE IVPB SCH (08:18)
[2016-11-20] MEDS: ADMIXTURE FEE IVPB SCH (08:18)
[2016-11-20] MEDS: Zinc Gluconate 50 MG TAB PO SCH (08:18)
[2016-11-20] MEDS: THIAMINE HCL IVPB SCH (08:18)
[2016-11-20] MEDS: Potassium Chloride 20 MEQ TAB PO SCH (08:19)
[2016-11-20] MEDS: Digoxin 0.125 MG TAB PO SCH (08:19)
[2016-11-20] MEDS: Acetaminophen 500 MG TAB PO PRN (19:55)
[2016-11-20] MEDS: Simvastatin 40 MG TAB PO SCH (20:07)
[2016-11-21] MEDS: Levothyroxine Sodium 100 MCG TAB PO SCH (06:09)
[2016-11-21] MEDS: Furosemide 40 MG TAB PO SCH (09:33)
[2016-11-21] MEDS: Potassium Chloride 20 MEQ TAB PO SCH (09:33)
[2016-11-21] MEDS: Digoxin 0.125 MG TAB PO SCH (09:34)
[2016-11-21] MEDS: Bupropion 100 MG SR TAB PO SCH ×2 (09:34→20:29)
[2016-11-21] MEDS: Fish Oil 1,000 MG CAP PO SCH (09:35)
[2016-11-21] MEDS: Escitalopram Oxalate 10 mg Tablet PO SCH (09:35)
[2016-11-21] MEDS: Folic Acid 1 MG TAB PO SCH (09:35)
[2016-11-21] MEDS: Docusate 100 MG CAP PO SCH (09:35)
[2016-11-21] MEDS: Lisinopril 5 MG TAB PO SCH (09:36)
[2016-11-21] MEDS: Multivit, Therapeutic 1 TAB PO SCH (09:36)
[2016-11-21] MEDS: Metoprolol Tartrate 25 MG TAB PO SCH ×2 (09:36→20:36)
[2016-11-21] MEDS: ADMIXTURE FEE IVPB SCH (09:39)
[2016-11-21] MEDS: THIAMINE HCL IVPB SCH (09:39)
[2016-11-21] MEDS: SODIUM CHLORIDE IVPB SCH (09:39)
[2016-11-21] MEDS: Zinc Gluconate 50 MG TAB PO SCH (09:41)
[2016-11-21] MEDS: Acetaminophen 500 MG TAB PO PRN ×2 (09:41→17:27)
[2016-11-21] MEDS: Simvastatin 40 MG TAB PO SCH (20:36)
[2016-11-22] MEDS: Acetaminophen 500 MG TAB PO PRN ×2 (00:08→19:07)
[2016-11-22] MEDS: Levothyroxine Sodium 100 MCG TAB PO SCH (05:26)
[2016-11-22] MEDS: Multivit, Therapeutic 1 TAB PO SCH (08:30)
[2016-11-22] MEDS: Fish Oil 1,000 MG CAP PO SCH (08:30)
[2016-11-22] MEDS: Folic Acid 1 MG TAB PO SCH (08:31)
[2016-11-22] MEDS: Bupropion 100 MG SR TAB PO SCH ×2 (08:31→21:00)
[2016-11-22] MEDS: Escitalopram Oxalate 10 mg Tablet PO SCH (08:31)
[2016-11-22] MEDS: Lisinopril 5 MG TAB PO SCH (08:31)
[2016-11-22] MEDS: Potassium Chloride 20 MEQ TAB PO SCH (08:31)
[2016-11-22] MEDS: Digoxin 0.125 MG TAB PO SCH (08:32)
[2016-11-22] MEDS: Zinc Gluconate 50 MG TAB PO SCH (08:32)
[2016-11-22] MEDS: Metoprolol Tartrate 25 MG TAB PO SCH ×2 (08:32→20:59)
[2016-11-22] MEDS: Furosemide 40 MG TAB PO SCH (08:32)
[2016-11-22] MEDS: ADMIXTURE FEE IVPB SCH (08:40)
[2016-11-22] MEDS: Docusate 100 MG CAP PO SCH (08:40)
[2016-11-22] MEDS: SODIUM CHLORIDE IVPB SCH (08:40)
[2016-11-22] MEDS: THIAMINE HCL IVPB SCH (08:40)
[2016-11-22] MEDS: Simvastatin 40 MG TAB PO SCH (21:00)
[2016-11-23] MEDS: Acetaminophen 500 MG TAB PO PRN ×2 (02:22→12:34)
[2016-11-23] MEDS: Levothyroxine Sodium 100 MCG TAB PO SCH (06:01)
[2016-11-23] MEDS: Potassium Chloride 20 MEQ TAB PO SCH (08:11)
[2016-11-23] MEDS: Furosemide 40 MG TAB PO SCH (08:11)
[2016-11-23] MEDS: THIAMINE HCL IVPB SCH (08:16)
[2016-11-23] MEDS: SODIUM CHLORIDE IVPB SCH (08:16)
[2016-11-23] MEDS: ADMIXTURE FEE IVPB SCH (08:16)
[2016-11-23] MEDS: Zinc Gluconate 50 MG TAB PO SCH (08:16)
[2016-11-23] MEDS: Escitalopram Oxalate 10 mg Tablet PO SCH (08:17)
[2016-11-23] MEDS: Lisinopril 5 MG TAB PO SCH (08:17)
[2016-11-23] MEDS: Multivit, Therapeutic 1 TAB PO SCH (08:17)
[2016-11-23] MEDS: Bupropion 100 MG SR TAB PO SCH ×2 (08:18→20:02)
[2016-11-23] MEDS: Digoxin 0.125 MG TAB PO SCH (08:18)
[2016-11-23] MEDS: Metoprolol Tartrate 25 MG TAB PO SCH ×2 (08:18→20:02)
[2016-11-23] MEDS: Folic Acid 1 MG TAB PO SCH (08:18)
[2016-11-23] MEDS: Fish Oil 1,000 MG CAP PO SCH (08:19)
[2016-11-23] MEDS: Docusate 100 MG CAP PO SCH (08:19)
[2016-11-23] MEDS: Acetaminophen/Codeine 30-300mg Tablet PO PRN (17:05)
[2016-11-23] MEDS: Simvastatin 40 MG TAB PO SCH (20:02)
[2016-11-24] MEDS: Levothyroxine Sodium 100 MCG TAB PO SCH (05:10)
[2016-11-24] MEDS: Bupropion 100 MG SR TAB PO SCH ×2 (08:05→20:25)
[2016-11-24] MEDS: Fish Oil 1,000 MG CAP PO SCH (08:05)
[2016-11-24] MEDS: Multivit, Therapeutic 1 TAB PO SCH (08:05)
[2016-11-24] MEDS: Metoprolol Tartrate 25 MG TAB PO SCH ×2 (08:06→20:25)
[2016-11-24] MEDS: Escitalopram Oxalate 10 mg Tablet PO SCH (08:06)
[2016-11-24] MEDS: Potassium Chloride 20 MEQ TAB PO SCH (08:06)
[2016-11-24] MEDS: Docusate 100 MG CAP PO SCH (08:06)
[2016-11-24] MEDS: Furosemide 40 MG TAB PO SCH (08:06)
[2016-11-24] MEDS: Zinc Gluconate 50 MG TAB PO SCH (08:06)
[2016-11-24] MEDS: Digoxin 0.125 MG TAB PO SCH (08:07)
[2016-11-24] MEDS: Folic Acid 1 MG TAB PO SCH (08:08)
[2016-11-24] MEDS: Lisinopril 5 MG TAB PO SCH (08:08)
[2016-11-24] MEDS: Acetaminophen 500 MG TAB PO PRN (08:21)
[2016-11-24] MEDS: Simvastatin 40 MG TAB PO SCH (20:26)
[2016-11-25] MEDS: Levothyroxine Sodium 100 MCG TAB PO SCH (06:01)
[2016-11-25] MEDS: Folic Acid 1 MG TAB PO SCH (08:27)
[2016-11-25] MEDS: Lisinopril 5 MG TAB PO SCH (08:27)
[2016-11-25] MEDS: Escitalopram Oxalate 10 mg Tablet PO SCH (08:27)
[2016-11-25] MEDS: Acetaminophen 500 MG TAB PO PRN ×2 (08:27→20:39)
[2016-11-25] MEDS: Metoprolol Tartrate 25 MG TAB PO SCH ×2 (08:27→20:38)
[2016-11-25] MEDS: Digoxin 0.125 MG TAB PO SCH (08:28)
[2016-11-25] MEDS: Zinc Gluconate 50 MG TAB PO SCH (08:28)
[2016-11-25] MEDS: Bupropion 100 MG SR TAB PO SCH ×2 (08:28→20:38)
[2016-11-25] MEDS: Docusate 100 MG CAP PO SCH (08:28)
[2016-11-25] MEDS: Furosemide 40 MG TAB PO SCH (08:28)
[2016-11-25] MEDS: Potassium Chloride 20 MEQ TAB PO SCH (08:28)
[2016-11-25] MEDS: Multivit, Therapeutic 1 TAB PO SCH (08:29)
[2016-11-25] MEDS: Fish Oil 1,000 MG CAP PO SCH (08:29)
[2016-11-25] MEDS: Simvastatin 40 MG TAB PO SCH (20:39)
[2016-11-26] MEDS: traZODone HCl 50 MG TAB PO PRN (00:26)
[2016-11-26] MEDS: Levothyroxine Sodium 100 MCG TAB PO SCH (05:29)
[2016-11-26 05:35] LABS: ALT (SGPT) 13 U/L (8-55); AST (SGOT) 23 U/L (5-34); Albumin 2.6 g/dL (3.4-4.8); Alkaline Phosphatase 82 U/L (40-150); Anion Gap 13 mmol/L (10-20); BUN (Urea Nitrogen) 6 mg/dL (8.4-25.7); Bilirubin, Total 0.8 mg/dL (0.2-1.2); Calc. Creatinine Clearance 192 mL/min (70-130); Calcium 8.4 mg/dL (7.8-10.44); Carbon Dioxide 27 mmol/L (23-31); Chloride 101 mmol/L (98-107); Estimated GFR-MDRD Greater than 90; Globulin 2.6 g/dL (2.4-3.5); Glucose 92 mg/dL (80-115); Potassium 3.5 mmol/L (3.5-5.1); Protein, Total 5.2 g/dL (5.8-8.1); Sodium 137 mmol/L (136-145)
[2016-11-26] MEDS: Furosemide 40 MG TAB PO SCH (08:15)
[2016-11-26] MEDS: Potassium Chloride 20 MEQ TAB PO SCH (08:15)
[2016-11-26] MEDS: Digoxin 0.125 MG TAB PO SCH (08:17)
[2016-11-26] MEDS: Folic Acid 1 MG TAB PO SCH (08:17)
[2016-11-26] MEDS: Docusate 100 MG CAP PO SCH (08:17)
[2016-11-26] MEDS: Bupropion 100 MG SR TAB PO SCH ×2 (08:17→21:24)
[2016-11-26] MEDS: Metoprolol Tartrate 25 MG TAB PO SCH ×2 (08:18→21:24)
[2016-11-26] MEDS: Escitalopram Oxalate 10 mg Tablet PO SCH (08:18)
[2016-11-26] MEDS: Lisinopril 5 MG TAB PO SCH (08:18)
[2016-11-26] MEDS: Fish Oil 1,000 MG CAP PO SCH (08:19)
[2016-11-26] MEDS: Multivit, Therapeutic 1 TAB PO SCH (08:19)
[2016-11-26] MEDS: Zinc Gluconate 50 MG TAB PO SCH (08:19)
--- NOTE | 2016-11-26 09:31 | ULT ---
ABDOMINAL ULTRASOUND: DATE: 11/26/16. HISTORY: 09/12/16. FINDINGS: This is a limited exam due to patient's limited movement. The abdominal aorta and pancreas are unab le to be visualized. Only small portions of the liver are seen, but the large portions of the liver are obscured due to shadowing from ribs and bowel gas. The majority of the spleen is also obscured but, where visualized, is grossly normal in appearance. The left kidney is not seen. There is limited evaluation of the right kidney and the right kidney measures 11.8 cm in length and there is no hydronephrosis. There is an approximately 4.2 cm anechoic structure seen mid portion ri ght kidney also seen on study of 08/23/16 and likely represents a cyst. IVC is not visualized. The gallbladder is not visualized and the patient has a reported history of prior cholecystectomy. There is a small amount of intraperitoneal free fluid identified. The common duct is not well seen but, where visualized, measures 0.4 cm in diameter, which is within normal limits. IMPRESSION: 1. Suboptimal examination. The majority of the anatomic structures are not visualized. 2. Right renal cyst. 3. Ascites. 4. Cholecystectomy. POS: [facility]
[2016-11-26] MEDS: Simvastatin 40 MG TAB PO SCH (21:24)
[2016-11-27] MEDS: Levothyroxine Sodium 100 MCG TAB PO SCH (05:13)
[2016-11-27] MEDS: Furosemide 40 MG TAB PO SCH (08:07)
[2016-11-27] MEDS: Potassium Chloride 20 MEQ TAB PO SCH (08:07)
[2016-11-27] MEDS: Docusate 100 MG CAP PO SCH (10:17)
[2016-11-27] MEDS: Bupropion 100 MG SR TAB PO SCH ×2 (10:17→20:40)
[2016-11-27] MEDS: Zinc Gluconate 50 MG TAB PO SCH (10:17)
[2016-11-27] MEDS: Fish Oil 1,000 MG CAP PO SCH (10:17)
[2016-11-27] MEDS: Digoxin 0.125 MG TAB PO SCH (10:17)
[2016-11-27] MEDS: Metoprolol Tartrate 25 MG TAB PO SCH ×2 (10:17→20:40)
[2016-11-27] MEDS: Lisinopril 5 MG TAB PO SCH (10:18)
[2016-11-27] MEDS: Folic Acid 1 MG TAB PO SCH (10:18)
[2016-11-27] MEDS: Escitalopram Oxalate 10 mg Tablet PO SCH (10:18)
[2016-11-27] MEDS: Multivit, Therapeutic 1 TAB PO SCH (10:18)
[2016-11-27] MEDS: Acetaminophen 500 MG TAB PO PRN (18:15)
[2016-11-27] MEDS: Simvastatin 40 MG TAB PO SCH (20:40)
[2016-11-28] MEDS: Levothyroxine Sodium 100 MCG TAB PO SCH (05:33)
[2016-11-28] MEDS: Bupropion 100 MG SR TAB PO SCH ×2 (08:16→20:52)
[2016-11-28] MEDS: Acetaminophen 500 MG TAB PO PRN ×2 (08:16→20:54)
[2016-11-28] MEDS: Metoprolol Tartrate 25 MG TAB PO SCH ×2 (08:17→20:51)
[2016-11-28] MEDS: Folic Acid 1 MG TAB PO SCH (08:17)
[2016-11-28] MEDS: Zinc Gluconate 50 MG TAB PO SCH (08:17)
[2016-11-28] MEDS: Docusate 100 MG CAP PO SCH (08:17)
[2016-11-28] MEDS: Furosemide 40 MG TAB PO SCH (08:17)
[2016-11-28] MEDS: Potassium Chloride 20 MEQ TAB PO SCH (08:17)
[2016-11-28] MEDS: Multivit, Therapeutic 1 TAB PO SCH (08:17)
[2016-11-28] MEDS: Escitalopram Oxalate 10 mg Tablet PO SCH (08:18)
[2016-11-28] MEDS: Fish Oil 1,000 MG CAP PO SCH (08:18)
[2016-11-28] MEDS: Lisinopril 5 MG TAB PO SCH (08:18)
[2016-11-28] MEDS: Digoxin 0.125 MG TAB PO SCH (08:19)
[2016-11-28] MEDS: traZODone HCl 50 MG TAB PO PRN (20:51)
[2016-11-28] MEDS: Simvastatin 40 MG TAB PO SCH (20:52)
[2016-11-29] MEDS: Levothyroxine Sodium 100 MCG TAB PO SCH (05:18)
[2016-11-29] MEDS: Digoxin 0.125 MG TAB PO SCH (08:33)
[2016-11-29] MEDS: Docusate 100 MG CAP PO SCH (08:35)
[2016-11-29] MEDS: Lisinopril 5 MG TAB PO SCH (08:35)
[2016-11-29] MEDS: Escitalopram Oxalate 10 mg Tablet PO SCH (08:35)
[2016-11-29] MEDS: Potassium Chloride 20 MEQ TAB PO SCH (08:35)
[2016-11-29] MEDS: Zinc Gluconate 50 MG TAB PO SCH (08:35)
[2016-11-29] MEDS: Bupropion 100 MG SR TAB PO SCH ×2 (08:35→20:57)
[2016-11-29] MEDS: Multivit, Therapeutic 1 TAB PO SCH (08:35)
[2016-11-29] MEDS: Folic Acid 1 MG TAB PO SCH (08:35)
[2016-11-29] MEDS: Loratadine 10 MG TAB PO SCH (08:36)
[2016-11-29] MEDS: Metoprolol Tartrate 25 MG TAB PO SCH ×2 (08:36→20:57)
[2016-11-29] MEDS: Furosemide 40 MG TAB PO SCH (08:36)
[2016-11-29] MEDS: Fish Oil 1,000 MG CAP PO SCH (08:43)
[2016-11-29] MEDS: Acetaminophen 500 MG TAB PO PRN ×2 (16:28→20:58)
[2016-11-29] MEDS: Simvastatin 40 MG TAB PO SCH (20:57)
[2016-11-29] MEDS: traZODone HCl 50 MG TAB PO PRN (20:57)
[2016-11-30] MEDS: Levothyroxine Sodium 100 MCG TAB PO SCH (05:19)
[2016-11-30] MEDS: Multivit, Therapeutic 1 TAB PO SCH (08:53)
[2016-11-30] MEDS: Bupropion 100 MG SR TAB PO SCH ×2 (08:53→21:21)
[2016-11-30] MEDS: Lisinopril 5 MG TAB PO SCH (08:53)
[2016-11-30] MEDS: Escitalopram Oxalate 10 mg Tablet PO SCH (08:53)
[2016-11-30] MEDS: Acetaminophen 500 MG TAB PO PRN ×2 (08:53→16:53)
[2016-11-30] MEDS: Furosemide 40 MG TAB PO SCH (08:54)
[2016-11-30] MEDS: Potassium Chloride 20 MEQ TAB PO SCH (08:54)
[2016-11-30] MEDS: Fish Oil 1,000 MG CAP PO SCH (08:54)
[2016-11-30] MEDS: Folic Acid 1 MG TAB PO SCH (08:54)
[2016-11-30] MEDS: Docusate 100 MG CAP PO SCH (08:54)
[2016-11-30] MEDS: Digoxin 0.125 MG TAB PO SCH (08:54)
[2016-11-30] MEDS: Zinc Gluconate 50 MG TAB PO SCH (08:54)
[2016-11-30] MEDS: Loratadine 10 MG TAB PO SCH (08:54)
[2016-11-30] MEDS: Metoprolol Tartrate 25 MG TAB PO SCH ×2 (08:56→21:21)
[2016-11-30] MEDS: Simvastatin 40 MG TAB PO SCH (21:21)
[2016-12-01] MEDS: Acetaminophen 500 MG TAB PO PRN ×3 (02:19→20:57)
[2016-12-01] MEDS: Levothyroxine Sodium 100 MCG TAB PO SCH (05:28)
[2016-12-01] MEDS: Multivit, Therapeutic 1 TAB PO SCH (08:46)
[2016-12-01] MEDS: Escitalopram Oxalate 10 mg Tablet PO SCH (08:47)
[2016-12-01] MEDS: Lisinopril 5 MG TAB PO SCH (08:47)
[2016-12-01] MEDS: Metoprolol Tartrate 25 MG TAB PO SCH ×2 (08:47→20:58)
[2016-12-01] MEDS: Bupropion 100 MG SR TAB PO SCH ×2 (08:47→20:57)
[2016-12-01] MEDS: Fish Oil 1,000 MG CAP PO SCH (08:48)
[2016-12-01] MEDS: Docusate 100 MG CAP PO SCH (08:48)
[2016-12-01] MEDS: Loratadine 10 MG TAB PO SCH (08:48)
[2016-12-01] MEDS: Zinc Gluconate 50 MG TAB PO SCH (08:48)
[2016-12-01] MEDS: Potassium Chloride 20 MEQ TAB PO SCH (08:48)
[2016-12-01] MEDS: Digoxin 0.125 MG TAB PO SCH (08:48)
[2016-12-01] MEDS: Folic Acid 1 MG TAB PO SCH (08:49)
[2016-12-01] MEDS: Furosemide 40 MG TAB PO SCH (08:49)
[2016-12-01] MEDS: Simvastatin 40 MG TAB PO SCH (20:58)
[2016-12-01] MEDS: traZODone HCl 50 MG TAB PO PRN (20:58)
[2016-12-02] MEDS: Levothyroxine Sodium 100 MCG TAB PO SCH (05:28)
[2016-12-02] MEDS: Furosemide 40 MG TAB PO SCH (08:15)
[2016-12-02] MEDS: Potassium Chloride 20 MEQ TAB PO SCH (08:15)
[2016-12-02] MEDS: Escitalopram Oxalate 10 mg Tablet PO SCH (08:17)
[2016-12-02] MEDS: Lisinopril 5 MG TAB PO SCH (08:17)
[2016-12-02] MEDS: Loratadine 10 MG TAB PO SCH (08:17)
[2016-12-02] MEDS: Multivit, Therapeutic 1 TAB PO SCH (08:17)
[2016-12-02] MEDS: Bupropion 100 MG SR TAB PO SCH ×2 (08:17→20:30)
[2016-12-02] MEDS: Docusate 100 MG CAP PO SCH (08:17)
[2016-12-02] MEDS: Metoprolol Tartrate 25 MG TAB PO SCH ×2 (08:18→20:30)
[2016-12-02] MEDS: Digoxin 0.125 MG TAB PO SCH (08:18)
[2016-12-02] MEDS: Fish Oil 1,000 MG CAP PO SCH (08:19)
[2016-12-02] MEDS: Zinc Gluconate 50 MG TAB PO SCH (08:19)
[2016-12-02] MEDS: Folic Acid 1 MG TAB PO SCH (08:19)
[2016-12-02] MEDS: Acetaminophen 500 MG TAB PO PRN (20:29)
[2016-12-02] MEDS: traZODone HCl 50 MG TAB PO PRN (20:29)
[2016-12-02] MEDS: Simvastatin 40 MG TAB PO SCH (20:30)
[2016-12-03] MEDS: Levothyroxine Sodium 100 MCG TAB PO SCH (05:19)
[2016-12-03] MEDS: Bupropion 100 MG SR TAB PO SCH ×2 (08:27→20:37)
[2016-12-03] MEDS: Potassium Chloride 20 MEQ TAB PO SCH (08:27)
[2016-12-03] MEDS: Escitalopram Oxalate 10 mg Tablet PO SCH (08:27)
[2016-12-03] MEDS: Loratadine 10 MG TAB PO SCH (08:27)
[2016-12-03] MEDS: Fish Oil 1,000 MG CAP PO SCH (08:27)
[2016-12-03] MEDS: Folic Acid 1 MG TAB PO SCH (08:28)
[2016-12-03] MEDS: Multivit, Therapeutic 1 TAB PO SCH (08:28)
[2016-12-03] MEDS: Furosemide 40 MG TAB PO SCH (08:28)
[2016-12-03] MEDS: Digoxin 0.125 MG TAB PO SCH (08:28)
[2016-12-03] MEDS: Docusate 100 MG CAP PO SCH (08:28)
[2016-12-03] MEDS: Metoprolol Tartrate 25 MG TAB PO SCH ×2 (08:29→20:36)
[2016-12-03] MEDS: Lisinopril 5 MG TAB PO SCH (08:29)
[2016-12-03] MEDS: Acetaminophen 500 MG TAB PO PRN ×2 (11:29→20:37)
[2016-12-03] MEDS: Simvastatin 40 MG TAB PO SCH (20:36)
[2016-12-03] MEDS: traZODone HCl 50 MG TAB PO PRN (20:36)
[2016-12-04] MEDS: Levothyroxine Sodium 100 MCG TAB PO SCH (05:16)
[2016-12-04] MEDS: Furosemide 40 MG TAB PO SCH (08:43)
[2016-12-04] MEDS: Fish Oil 1,000 MG CAP PO SCH (08:43)
[2016-12-04] MEDS: Docusate 100 MG CAP PO SCH (08:43)
[2016-12-04] MEDS: Bupropion 100 MG SR TAB PO SCH ×2 (08:43→21:24)
[2016-12-04] MEDS: Multivit, Therapeutic 1 TAB PO SCH (08:44)
[2016-12-04] MEDS: Potassium Chloride 20 MEQ TAB PO SCH (08:44)
[2016-12-04] MEDS: Metoprolol Tartrate 25 MG TAB PO SCH ×2 (08:44→21:24)
[2016-12-04] MEDS: Escitalopram Oxalate 10 mg Tablet PO SCH (08:45)
[2016-12-04] MEDS: Folic Acid 1 MG TAB PO SCH (08:46)
[2016-12-04] MEDS: Loratadine 10 MG TAB PO SCH (08:46)
[2016-12-04] MEDS: Lisinopril 5 MG TAB PO SCH (08:46)
[2016-12-04] MEDS: Digoxin 0.125 MG TAB PO SCH (08:47)
[2016-12-04] MEDS: Acetaminophen 500 MG TAB PO PRN (15:58)
[2016-12-04] MEDS: Simvastatin 40 MG TAB PO SCH (21:24)
[2016-12-05] MEDS: Levothyroxine Sodium 100 MCG TAB PO SCH (05:17)
[2016-12-05] MEDS: Furosemide 40 MG TAB PO SCH (08:04)
[2016-12-05] MEDS: Potassium Chloride 20 MEQ TAB PO SCH (08:04)
[2016-12-05] MEDS: Bupropion 100 MG SR TAB PO SCH ×2 (08:19→20:50)
[2016-12-05] MEDS: Docusate 100 MG CAP PO SCH (08:19)
[2016-12-05] MEDS: Lisinopril 5 MG TAB PO SCH (08:19)
[2016-12-05] MEDS: Metoprolol Tartrate 25 MG TAB PO SCH ×2 (08:19→20:50)
[2016-12-05] MEDS: Digoxin 0.125 MG TAB PO SCH (08:20)
[2016-12-05] MEDS: Loratadine 10 MG TAB PO SCH (08:20)
[2016-12-05] MEDS: Multivit, Therapeutic 1 TAB PO SCH (08:20)
[2016-12-05] MEDS: Folic Acid 1 MG TAB PO SCH (08:20)
[2016-12-05] MEDS: Fish Oil 1,000 MG CAP PO SCH (08:20)
[2016-12-05] MEDS: Escitalopram Oxalate 10 mg Tablet PO SCH (08:20)
[2016-12-05] MEDS: Acetaminophen 500 MG TAB PO PRN (19:33)
[2016-12-05] MEDS: Simvastatin 40 MG TAB PO SCH (20:50)
[2016-12-06] MEDS: Levothyroxine Sodium 100 MCG TAB PO SCH (05:43)
[2016-12-06] MEDS: Potassium Chloride 20 MEQ TAB PO SCH (08:02)
[2016-12-06] MEDS: Furosemide 40 MG TAB PO SCH (08:02)
[2016-12-06] MEDS: Bupropion 100 MG SR TAB PO SCH ×2 (08:04→20:17)
[2016-12-06] MEDS: Escitalopram Oxalate 10 mg Tablet PO SCH (08:04)
[2016-12-06] MEDS: Folic Acid 1 MG TAB PO SCH (08:04)
[2016-12-06] MEDS: Docusate 100 MG CAP PO SCH (08:04)
[2016-12-06] MEDS: Multivit, Therapeutic 1 TAB PO SCH (08:04)
[2016-12-06] MEDS: Loratadine 10 MG TAB PO SCH (08:05)
[2016-12-06] MEDS: Lisinopril 5 MG TAB PO SCH (08:05)
[2016-12-06] MEDS: Fish Oil 1,000 MG CAP PO SCH (08:05)
[2016-12-06] MEDS: Metoprolol Tartrate 25 MG TAB PO SCH ×2 (08:06→20:15)
[2016-12-06] MEDS: Digoxin 0.125 MG TAB PO SCH (08:06)
[2016-12-06] MEDS: Acetaminophen 500 MG TAB PO PRN (14:17)
[2016-12-06] MEDS: Simvastatin 40 MG TAB PO SCH (20:17)
[2016-12-07] MEDS: Acetaminophen 500 MG TAB PO PRN ×2 (05:26→21:24)
[2016-12-07] MEDS: Levothyroxine Sodium 100 MCG TAB PO SCH (05:26)
[2016-12-07] MEDS: Furosemide 40 MG TAB PO SCH (07:43)
[2016-12-07] MEDS: Potassium Chloride 20 MEQ TAB PO SCH (07:44)
[2016-12-07] MEDS: Docusate 100 MG CAP PO SCH (09:00)
[2016-12-07] MEDS: Fish Oil 1,000 MG CAP PO SCH (09:00)
[2016-12-07] MEDS: Escitalopram Oxalate 10 mg Tablet PO SCH (09:00)
[2016-12-07] MEDS: Bupropion 100 MG SR TAB PO SCH ×2 (09:00→21:23)
[2016-12-07] MEDS: Lisinopril 5 MG TAB PO SCH (09:01)
[2016-12-07] MEDS: Metoprolol Tartrate 25 MG TAB PO SCH ×2 (09:01→21:23)
[2016-12-07] MEDS: Folic Acid 1 MG TAB PO SCH (09:02)
[2016-12-07] MEDS: Digoxin 0.125 MG TAB PO SCH (09:02)
[2016-12-07] MEDS: Multivit, Therapeutic 1 TAB PO SCH (09:02)
[2016-12-07] MEDS: Loratadine 10 MG TAB PO SCH (09:02)
[2016-12-07] MEDS: Simvastatin 40 MG TAB PO SCH (21:24)
[2016-12-08] MEDS: Levothyroxine Sodium 100 MCG TAB PO SCH (05:49)
[2016-12-08] MEDS: Digoxin 0.125 MG TAB PO SCH (08:14)
[2016-12-08] MEDS: Bupropion 100 MG SR TAB PO SCH ×2 (08:14→20:19)
[2016-12-08] MEDS: Escitalopram Oxalate 10 mg Tablet PO SCH (08:14)
[2016-12-08] MEDS: Docusate 100 MG CAP PO SCH (08:14)
[2016-12-08] MEDS: Potassium Chloride 20 MEQ TAB PO SCH (08:14)
[2016-12-08] MEDS: Folic Acid 1 MG TAB PO SCH (08:14)
[2016-12-08] MEDS: Loratadine 10 MG TAB PO SCH (08:14)
[2016-12-08] MEDS: Furosemide 40 MG TAB PO SCH (08:15)
[2016-12-08] MEDS: Lisinopril 5 MG TAB PO SCH ×2 (08:15→08:16)
[2016-12-08] MEDS: Fish Oil 1,000 MG CAP PO SCH (08:16)
[2016-12-08] MEDS: Metoprolol Tartrate 25 MG TAB PO SCH ×2 (08:17→20:19)
[2016-12-08] MEDS: Multivit, Therapeutic 1 TAB PO SCH (08:17)
[2016-12-08] MEDS: Acetaminophen 500 MG TAB PO PRN (10:51)
[2016-12-08] MEDS ORDERED: Fioricet 325/50/40 mg Tablet PO SCH (12:00)
[2016-12-08] MEDS: Simvastatin 40 MG TAB PO SCH (20:19)
[2016-12-09] MEDS: Levothyroxine Sodium 100 MCG TAB PO SCH (05:58)
[2016-12-09] MEDS: Potassium Chloride 20 MEQ TAB PO SCH (08:13)
[2016-12-09] MEDS: Metoprolol Tartrate 25 MG TAB PO SCH ×2 (08:13→20:15)
[2016-12-09] MEDS: Loratadine 10 MG TAB PO SCH (08:13)
[2016-12-09] MEDS: Multivit, Therapeutic 1 TAB PO SCH (08:14)
[2016-12-09] MEDS: Bupropion 100 MG SR TAB PO SCH ×2 (08:14→20:16)
[2016-12-09] MEDS: Folic Acid 1 MG TAB PO SCH (08:14)
[2016-12-09] MEDS: Digoxin 0.125 MG TAB PO SCH (08:14)
[2016-12-09] MEDS: Escitalopram Oxalate 10 mg Tablet PO SCH (08:14)
[2016-12-09] MEDS: Fish Oil 1,000 MG CAP PO SCH (08:15)
[2016-12-09] MEDS: Furosemide 40 MG TAB PO SCH (08:15)
[2016-12-09] MEDS: Docusate 100 MG CAP PO SCH (08:15)
[2016-12-09] MEDS: Simvastatin 40 MG TAB PO SCH (20:17)
[2016-12-10 04:49] VITALS: BMI 34.0
[2016-12-10] MEDS: Levothyroxine Sodium 100 MCG TAB PO SCH (05:10)
[2016-12-10] MEDS: Acetaminophen 500 MG TAB PO PRN (05:12)
[2016-12-10] MEDS: Benzonatate 100 MG CAP PO SCH ×3 (08:21→20:29)
[2016-12-10] MEDS: Fish Oil 1,000 MG CAP PO SCH (08:21)
[2016-12-10] MEDS: Docusate 100 MG CAP PO SCH (08:22)
[2016-12-10] MEDS: Folic Acid 1 MG TAB PO SCH (08:22)
[2016-12-10] MEDS: Bupropion 100 MG SR TAB PO SCH ×2 (08:22→20:29)
[2016-12-10] MEDS: Furosemide 40 MG TAB PO SCH (08:22)
[2016-12-10] MEDS: Escitalopram Oxalate 10 mg Tablet PO SCH (08:22)
[2016-12-10] MEDS: Loratadine 10 MG TAB PO SCH (08:23)
[2016-12-10] MEDS: Potassium Chloride 20 MEQ TAB PO SCH (08:23)
[2016-12-10] MEDS: Multivit, Therapeutic 1 TAB PO SCH (08:23)
[2016-12-10] MEDS: Metoprolol Tartrate 25 MG TAB PO SCH ×2 (08:23→20:30)
[2016-12-10] MEDS: Lisinopril 5 MG TAB PO SCH (08:23)
[2016-12-10] MEDS: Digoxin 0.125 MG TAB PO SCH (08:24)
[2016-12-10] MEDS: Simvastatin 40 MG TAB PO SCH (20:30)
[2016-12-11] MEDS: Levothyroxine Sodium 100 MCG TAB PO SCH (05:15)
[2016-12-11] MEDS: Furosemide 40 MG TAB PO SCH (07:44)
[2016-12-11] MEDS: Potassium Chloride 20 MEQ TAB PO SCH (07:44)
[2016-12-11] MEDS: Folic Acid 1 MG TAB PO SCH (09:08)
[2016-12-11] MEDS: Bupropion 100 MG SR TAB PO SCH ×2 (09:08→20:46)
[2016-12-11] MEDS: Digoxin 0.125 MG TAB PO SCH (09:08)
[2016-12-11] MEDS: Loratadine 10 MG TAB PO SCH (09:08)
[2016-12-11] MEDS: Multivit, Therapeutic 1 TAB PO SCH (09:08)
[2016-12-11] MEDS: Fish Oil 1,000 MG CAP PO SCH (09:08)
[2016-12-11] MEDS: Escitalopram Oxalate 10 mg Tablet PO SCH (09:09)
[2016-12-11] MEDS: Lisinopril 5 MG TAB PO SCH (09:09)
[2016-12-11] MEDS: Docusate 100 MG CAP PO SCH (09:09)
[2016-12-11] MEDS: Metoprolol Tartrate 25 MG TAB PO SCH ×2 (09:10→20:46)
[2016-12-11] MEDS: Acetaminophen 500 MG TAB PO PRN (17:01)
[2016-12-11] MEDS: traZODone HCl 50 MG TAB PO PRN (20:46)
[2016-12-11] MEDS: Simvastatin 40 MG TAB PO SCH (20:47)
[2016-12-12] MEDS: Acetaminophen 500 MG TAB PO PRN ×2 (03:17→14:21)
[2016-12-12] MEDS: Levothyroxine Sodium 100 MCG TAB PO SCH (05:47)
[2016-12-12] MEDS: Fioricet 325/50/40 mg Tablet PO PRN (07:10)
[2016-12-12] MEDS: Loratadine 10 MG TAB PO SCH (08:31)
[2016-12-12] MEDS: Docusate 100 MG CAP PO SCH (08:32)
[2016-12-12] MEDS: Escitalopram Oxalate 10 mg Tablet PO SCH (08:33)
[2016-12-12] MEDS: Fish Oil 1,000 MG CAP PO SCH (08:33)
[2016-12-12] MEDS: Potassium Chloride 20 MEQ TAB PO SCH (08:33)
[2016-12-12] MEDS: Furosemide 40 MG TAB PO SCH (08:33)
[2016-12-12] MEDS: Metoprolol Tartrate 25 MG TAB PO SCH ×2 (08:33→21:16)
[2016-12-12] MEDS: Multivit, Therapeutic 1 TAB PO SCH (08:33)
[2016-12-12] MEDS: Digoxin 0.125 MG TAB PO SCH (08:33)
[2016-12-12] MEDS: Bupropion 100 MG SR TAB PO SCH ×2 (08:33→21:15)
[2016-12-12] MEDS: Lisinopril 5 MG TAB PO SCH (08:34)
[2016-12-12] MEDS: Folic Acid 1 MG TAB PO SCH (08:35)
[2016-12-12] MEDS: Fluticasone Propionate Nasal Spray 16 gm Bottle NASAL SCH ×2 (08:43→21:16)
[2016-12-12] MEDS: Simvastatin 40 MG TAB PO SCH (21:15)
[2016-12-12] MEDS: traZODone HCl 50 MG TAB PO PRN (21:15)
[2016-12-13] MEDS: Levothyroxine Sodium 100 MCG TAB PO SCH (05:44)
[2016-12-13] MEDS: Lisinopril 5 MG TAB PO SCH (08:31)
[2016-12-13] MEDS: Metoprolol Tartrate 25 MG TAB PO SCH (08:31)
[2016-12-13] MEDS: Escitalopram Oxalate 10 mg Tablet PO SCH (08:31)
[2016-12-13] MEDS: Furosemide 40 MG TAB PO SCH (08:31)
[2016-12-13] MEDS: Bupropion 100 MG SR TAB PO SCH (08:31)
[2016-12-13] MEDS: Multivit, Therapeutic 1 TAB PO SCH (08:32)
[2016-12-13] MEDS: Docusate 100 MG CAP PO SCH (08:32)
[2016-12-13] MEDS: Loratadine 10 MG TAB PO SCH (08:32)
[2016-12-13] MEDS: Potassium Chloride 20 MEQ TAB PO SCH (08:32)
[2016-12-13] MEDS: Fish Oil 1,000 MG CAP PO SCH (08:32)
[2016-12-13] MEDS: Folic Acid 1 MG TAB PO SCH (08:32)
[2016-12-13] MEDS: Fluticasone Propionate Nasal Spray 16 gm Bottle NASAL SCH (08:33)
[2016-12-13] MEDS: Digoxin 0.125 MG TAB PO SCH (08:33)
[2016-12-13 08:43] VITALS: BP 164/84
[2016-12-13 09:26] VITALS: TEMP 97.8
[2016-12-13] MEDS: Fioricet 325/50/40 mg Tablet PO PRN (10:36)
--- NOTE | 2016-12-14 19:59 | DIS ---
DATE OF ADMISSION: 10/31/2016 DATE OF DISCHARGE: 12/13/2016 ATTENDING: Tabitha Stevens M.D. PRIMARY CARE PHYSICIAN: Michael Newton M.D. REASON FOR ADMISSION: Skilled Rehab in [facility]. FINAL DIAGNOSES: 1. Physical deconditioning. 2. Chronic alcoholism/abuse complicated with ascites and anasarca. 3. 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 4. Acute on chronic systolic heart failure. 5. General weakness. 6. History of falls. 7. Anxiety and depression. 8. Hypertension. 9. Hypothyroidism. 10. Unsteady gait. DISPOSITION: Home with . CONDITION ON DISCHARGE: Stable. HOME MEDICATIONS: 1. Amiodarone 200 mg p.o. daily. 2. Aspirin 81 mg p.o. daily. 3. Wellbutrin SR 100 mg p.o. b.i.d. 4. Digoxin 0.125 mg p.o. daily. 5. Docusate 100 mg p.o. daily. 6. Lexapro 20 mg p.o. daily. 7. Fish oil 1000 mg p.o. daily. 8. Furosemide 40 mg p.o. daily. 9. Levothyroxine 100 mcg p.o. q.a.m. 10. Metoprolol 12.5 mg p.o. b.i.d. 11. Multivitamins 1 tab p.o. daily. 12. Pantoprazole 40 mg p.o. daily. 13. Potassium chloride 20 mEq p.o. q.a.m. 14. Simvastatin 40 mg p.o. q.p.m. 15. Thiamine 100 mg p.o. daily. 16. Folic acid 1000 mg p.o. daily. 17. Flonase 1 spray per nostril b.i.d. p.r.n. DISCHARGE INSTRUCTIONS: 1. DIET: Low salt, low fat. 2. ACTIVITIES: Ad chandrika. To use rolling walker as a protective measure for safety precaution/fall prevention. FOLLOWUP: 1. Follow up with PCP in 1-2 weeks. 2. Follow up with Dr. Salas on 01/06/2017 at 1:30 p.m. 3. Follow with Dr. Agustin for GI care on 12/30/2016 at 12:30 p.m. Monitor weight and daily results. Bring result to PCP's followup appointment. Take all medications as prescribed. Home health was arranged prior to discharge to continue PT, OT in Longterm. LABORATORY DATA AND IMAGING STUDIES: 1. Ultrasound of the abdomen on 11/26/2016 showed small amount of ascites. Stable right renal cyst 4.2 cm on the right kidney. 2. On 11/03/2016, WBC 5.7, hemoglobin 11.6, hematocrit 34, and platelets 200. CMP on 11/26/2016, sodium 137, potassium 3.5, BUN 6, creatinine 0.59, GFR greater than 90. Albumin 2.6, vitamin B1 113.8. 3. UA on 11/14/2016 negative. Digoxin on 11/03/2016 0.78 and 11/14/2016 0.96. HISTORY OF THE PRESENT ILLNESS AND HOSPITAL COURSE: Mr. Almonte is a 66-year-old male with significant history of chronic alcoholism/abuse, frequent falls, abnormality of gait secondary to unsteadiness, hypertension, paroxysmal atrial fibrillation, chronic systolic heart failure, and moderate coronary artery disease. Patient was initially admitted to [facility] in [place] after he was treated for altered mental status. Of note, patient was a previous resident of [facility] under Dr. Aiden Ortiz's care prior to this most recent hospitalization. Per records, patient has been having frequent falls, was discharged back to the correction after his initial hospitalization at that time. While in the correction, the patient fell again and was brought back to the emergency room, where he was reported to have alteration in mental status. His workup at that time showed no new significant neurological deficits, but with bilateral lower extremity edema as well as ascites and anasarca. His CT of the abdomen and pelvis at that time showed no evidence of any acute traumatic injury per record, but there was a moderate volume ascites and some anasarca with small bilateral pleural effusion, bilateral renal cysts, mild bilateral nephrolithiasis without obstructive uropathy and evidence of status post laparoscopic gastric band. There was no significant change from the previous study on 10/23/2016 per report. There was also a CT scan of the brain at that time, which showed no significant evidence of acute intracranial abnormality. At that time, his ammonia level and thyroid functions were also reported within normal limits. There was also no evidence of urinary tract infection. The patient was treated with supportive medical management at that time and subsequently transferred to [facility] per request secondary to severely deconditioned status, requiring rehabilitation. The patient made a significant improvement with overall functional and mental status while in [facility]. His physical strength markedly improved in a slow manner. He was walking about 300 feet prior to discharge and he remains still to have a slow gait but much steadier gait. During his rehabilitation course, there was a significant reactive confusion associated with hallucinations.. He was treated for Korsakoff Wernicke syndrome with both IV and oral thiamine supplement,folic acid supplement.His ammonia level, electrolytes, renal function digoxin level and urinalysis with urine culture were unremarkable. His medications were likewise adjusted. Patient made a significant improvement with his overall mental status after tramadol and hydrocodone and [place] were completely discontinued and his Wellbutrin and Lexapro were put back to his origin doses. There was an initial plan of correction placement during his course secondary to severe confusion, unsteadiness of gait, and poor memory. We made several discussions and conferences with the family as represented by his and his biological daughter regarding this matter. states that he could no longer take the patient back home as he requires higher level of care. Patient was observed further in [facility] and overall behaviors improved markedly. He became more alert and awake and much oriented over the course. He eventually follows appropriately instructions, both from the nurses and the therapist making him improved with his overall functional status over the hospital course. When we revisited with the family prior to discharge, was very happy and states that she is more comfortable at this time to take care of the patient back home. There was a family training made with the therapist prior to discharge and patient receives training on safety prevention and was able to follow through. On 12/13/2016, the patient was discharged home and was picked up by his , Laurita. PHYSICAL EXAMINATION: VITAL SIGNS: Prior to discharge, blood pressure 157/83, pulse 63, respirations 17, temperature 97.8, O2 sats 95% at room air, weight 229 pounds and 7 ounces, height 5, 10, admitting weight was 249 pounds and 1 ounce. Time spent on this discharge 35 minutes in clinical exam and coordinating care. MARISELA
== END 2016-12-13 13:03 | disposition home health service (06) | DRG 947 ==
LOC: MADMS 17:22
PROVIDERS: ADMIT Family Medicine; ATTEND Family Medicine
DX: R53.1 Weakness (principal); G93.40 Encephalopathy, unspecified; I50.23 Acute on chronic systolic (congestive) heart failure; F10.251 Alcohol dependence with alcohol-induced psychotic disorder with hallucinations; E87.1 Hypo-osmolality and hyponatremia; K70.31 Alcoholic cirrhosis of liver with ascites; F10.20 Alcohol dependence, uncomplicated; I11.0 Hypertensive heart disease with heart failure; E78.5 Hyperlipidemia, unspecified; K21.9 Gastro-esophageal reflux disease without esophagitis; E66.9 Obesity, unspecified; Z68.32 Body mass index [BMI] 32.0-32.9, adult; E03.9 Hypothyroidism, unspecified; J45.909 Unspecified asthma, uncomplicated; I48.0 Paroxysmal atrial fibrillation; I25.10 Atherosclerotic heart disease of native coronary artery without angina pectoris; R26.81 Unsteadiness on feet; F41.9 Anxiety disorder, unspecified; F32.9 Major depressive disorder, single episode, unspecified; Z98.84 Bariatric surgery status; Z96.652 Presence of left artificial knee joint; H91.90 Unspecified hearing loss, unspecified ear; R41.0 Disorientation, unspecified; E88.09 Other disorders of plasma-protein metabolism, not elsewhere classified; Z91.81 History of falling; R11.10 Vomiting, unspecified; T50.995A Adverse effect of other drugs, medicaments and biological substances, initial encounter
CPT/HCPCS: 36415; 76700; 80053; 80162; 81001; 82140; 84425; 85025; 87086; A4216; G8978-GP-CK; G8979-GP-CI; G8996-GN-CJ; G8997-GN-CJ; J1630; J3411; J7050

== ENCOUNTER 2017-07-30 11:07 | Emergency (ER) | payer MEDICARE, OTHER ==
[2017-07-30] MEDS ORDERED: Furosemide 40 MG/4 ML VIAL ONE ×2 (11:44→13:01)
[2017-07-30] MEDS ORDERED: Metoprolol Tartrate 5 MG/5 ML VIAL ONE ×2 (11:49→12:49)
[2017-07-30 11:56] LABS: #Lymphocytes 0.6 thou/uL (1.20-3.40); #Monocytes 0.8 thou/uL (0.11-0.59); #Neutrophils 6.3 thou/uL (1.40-6.50); %Basophils 0.3 % (0.0-1.0); %Eosinophils 0.1 % (0.0-10.0); %Lymphocytes 7.2 % (21.0-51.0); %Monocytes 10.7 % (0.0-10.0); %Neutrophils 81.7 % (42.0-75.0); Hemoglobin 14.4 g/dL (14.0-18.0); Mean Corpuscular HGB CONC 33.4 g/dL (32.0-36.0); Mean Corpuscular Hemoglobin 33.1 pg (27.0-31.0); Mean Corpuscular Volume 99.2 fl (80.0-94.0); Mean Platelet Volume 8.4 fL (7.4-10.4); Platelet Count 153 thou/uL (130-400); RBC Distribution Width 13.7 % (11.5-14.5); Red Blood Cell (RBC) Count 4.34 mill/uL (4.70-6.10); White Blood Cell (WBC) Count 7.7 thou/uL (4.8-10.8)
[2017-07-30 12:03] LABS: Bilirubin Small (Negative); Blood, Urine Small (Negative); Clarity Clear (Clear); Glucose, Urine (Dipstick) Negative (Negative); Leukocyte Negative (Negative); Nitrite Negative (Negative); Protein, Urine (Dipstick) > or equal to 300 mg/dL (Neg-Trace)
--- NOTE | 2017-07-30 12:05 | RAD ---
FRONTAL VIEW CHEST: Comparison: 10-25-16 Clinical history: Dyspnea. FINDINGS: The lungs are hypoinflated. This accentuates the cardiomediastinal silhouette and pulmonary vasculatu re. There is obscuration of the left lung base by cardiac silhouette. IMPRESSION: Hypoinflated lungs limiting evaluation. When feasible, follow up may be obtained with two view chest with the patient obtaining deeper inspiratory effort. POS: [facility]
[2017-07-30 12:08] LABS: INR-International Normal Ratio 1.2; PTT 29.2 SEC (22.9-36.1); Prothrombin Time 15.8 SEC (12.0-14.7)
[2017-07-30 12:09] LABS: Bacteria/HPF Rare-Few HPF (None Seen); RBC/HPF 0-3 HPF (0-3); Squamous Epithelial 0-3 HPF (0-3); WBC/HPF 0-3 HPF (0-3)
[2017-07-30 12:10] LABS: D-Dimer Test 3.41 *mcg/mL (0.27-0.43)
[2017-07-30 12:16] LABS: Amphetamine Not Detected (NotDetected); Barbiturates Screen Not Detected (NotDetected); Benzodiazepine Screen Not Detected (NotDetected); Cocaine Metabolite Screen Not Detected (NotDetected); Medtox Control Line Valid? VALID (VALID); Methadone Not Detected (NotDetected); Methamphetamine Not Detected (NotDetected); Opiate Screen Not Detected (NotDetected); Oxycodone Screen Not Detected (NotDetected); Phencyclidine (PCP) Not Detected (NotDetected); THC/Cannabinoid Screen Not Detected (NotDetected); Tricyclic Screen Not Detected (NotDetected)
[2017-07-30 12:18] LABS: ALT (SGPT) 27 U/L (8-55); AST (SGOT) 57 U/L (5-34); Albumin 4.6 g/dL (3.4-4.8); Alkaline Phosphatase 92 U/L (40-150); Anion Gap 21 mmol/L (10-20); BUN (Urea Nitrogen) 11 mg/dL (8.4-25.7); Bilirubin, Total 2.9 mg/dL (0.2-1.2); CK (CPK) 219 U/L (30-200); Calc. Creatinine Clearance 0 mL/min (70-130); Calcium 9.6 mg/dL (7.8-10.44); Carbon Dioxide 26 mmol/L (23-31); Chloride 79 mmol/L (98-107); Estimated GFR-MDRD Greater than 90; Globulin 3.2 g/dL (2.4-3.5); Glucose 100 mg/dL (80-115); Potassium 3.4 mmol/L (3.5-5.1); Protein, Total 7.8 g/dL (5.8-8.1); Sodium 123 mmol/L (136-145)
[2017-07-30 12:32] LABS: CKMB 11.4 ng/mL (0-6.6)
[2017-07-30 12:57] LABS: Lipase 117 U/L (8-78)
== END 2017-07-30 13:19 | disposition short-term general hospital (02) ==
LOC: MADERS 11:07
DX: I48.91 Unspecified atrial fibrillation (principal); R41.82 Altered mental status, unspecified; I11.0 Hypertensive heart disease with heart failure; I50.9 Heart failure, unspecified; R79.89 Other specified abnormal findings of blood chemistry; E87.1 Hypo-osmolality and hyponatremia; F32.9 Major depressive disorder, single episode, unspecified; F41.9 Anxiety disorder, unspecified; Z79.899 Other long term (current) drug therapy
CPT/HCPCS: 36415; 71045; 80053; 80306; 81003; 81015; 82140; 82553; 83690; 83880; 84443; 84484; 85025; 85379; 85610; 85730; 87040; 87086; 93005; 94760; 96374; 96375; 96376; J1940

== ENCOUNTER 2018-11-19 10:54 | Emergency (ER) | payer MEDICARE, OTHER ==
[2018-11-19] MEDS ORDERED: Sodium Chloride 0.9% 1,000 ML ONE (11:30)
[2018-11-19] MEDS ORDERED: Ketorolac Tromethamine 30 MG/ML VIAL ONE (12:02)
[2018-11-19 12:03] LABS: ALT (SGPT) 30 U/L (8-55); AST (SGOT) 66 U/L (5-34); Albumin 4.1 g/dL (3.4-4.8); Alkaline Phosphatase 55 U/L (40-150); Anion Gap 21 mmol/L (10-20); BUN (Urea Nitrogen) 10 mg/dL (8.4-25.7); Bilirubin, Total 1.6 mg/dL (0.2-1.2); Calc. Creatinine Clearance 0 mL/min (70-130); Calcium 9.3 mg/dL (7.8-10.44); Carbon Dioxide 23 mmol/L (23-31); Chloride 99 mmol/L (98-107); Estimated GFR-MDRD 69; Globulin 2.4 g/dL (2.4-3.5); Glucose 112 mg/dL (80-115); Potassium 3.2 mmol/L (3.5-5.1); Protein, Total 6.5 g/dL (5.8-8.1); Sodium 140 mmol/L (136-145)
[2018-11-19 12:05] LABS: #Lymphocytes 1.2 thou/uL (1.20-3.40); #Monocytes 0.7 thou/uL (0.11-0.59); %Basophils 0.5 % (0.0-1.0); %Eosinophils 0.8 % (0.0-10.0); %Lymphocytes 20.1 % (21.0-51.0); %Monocytes 11.8 % (0.0-10.0); %Neutrophils 66.9 % (42.0-75.0); Hemoglobin 12.6 g/dL (14.0-18.0); Large Platelets SLIGHT; MDiff Complete? YES; Mean Corpuscular HGB CONC 33.2 g/dL (32.0-36.0); Mean Corpuscular Hemoglobin 32.8 pg (27.0-31.0); Mean Corpuscular Volume 98.7 fL (78.0-98.0); Mean Platelet Volume 8.2 fL (7.4-10.4); Platelet Count 82 thou/uL (130-400); Platelet Morphology Comment Appears Decreased; RBC Distribution Width 13.7 % (11.5-14.5); Red Blood Cell (RBC) Count 3.84 mill/uL (4.70-6.10)
[2018-11-19 12:22] LABS: CKMB 3.5 ng/mL (0-6.6)
[2018-11-19] MEDS ORDERED: Potassium Chloride 20 MEQ TAB ONE (12:33)
[2018-11-19] MEDS ORDERED: Magnesium Sulfate 2 GM/NS 0.9% 50 ML BAG ONE (12:33)
== END 2018-11-19 14:50 | disposition short-term general hospital (02) ==
LOC: MADERS 10:54
DX: I95.89 Other hypotension (principal); E86.0 Dehydration; E87.6 Hypokalemia; E83.42 Hypomagnesemia; E03.9 Hypothyroidism, unspecified; I48.91 Unspecified atrial fibrillation; K21.9 Gastro-esophageal reflux disease without esophagitis; E78.5 Hyperlipidemia, unspecified; F32.9 Major depressive disorder, single episode, unspecified; F41.9 Anxiety disorder, unspecified; Z79.891 Long term (current) use of opiate analgesic; Z79.82 Long term (current) use of aspirin; Z79.899 Other long term (current) drug therapy
CPT/HCPCS: 36415; 80053; 82550; 82553; 83605; 83735; 83880; 84484; 85025; 87040; 93005; 94760; 96361; 96374; 96375; J1885; J3475; J7050

== ENCOUNTER 2022-06-30 11:41 | Outpatient (CLI) | payer MEDICARE, OTHER | END 2022-06-30 11:42 | disposition home or self-care (01) | LOC: MADRAD 11:41 | PROVIDERS: ATTEND Family Medicine | DX: M54.6 Pain in thoracic spine (principal); M47.814 Spondylosis without myelopathy or radiculopathy, thoracic region; M47.816 Spondylosis without myelopathy or radiculopathy, lumbar region | CPT/HCPCS: 72072; 72100 ==

== ENCOUNTER 2023-03-30 16:43 | Inpatient (IN) | payer MEDICARE, BC ==
[2023-03-30] MEDS ORDERED: Loratadine 10 MG TAB PO PRN (21:39)
[2023-03-30] MEDS ORDERED: Ondansetron ODT 4 MG TAB PO PRN (21:39)
[2023-03-30] MEDS ORDERED: Fluticasone Propionate Nasal Spray 16 gm Bottle NASAL PRN (21:39)
[2023-03-30] MEDS ORDERED: Docusate 100 MG CAP PO PRN (21:39)
[2023-03-30] MEDS ORDERED: Clotrimazole 1% Cream 15 GM TUBE TOP PRN (21:39)
[2023-03-31] MEDS: Levothyroxine Sodium 125 MCG TAB PO SCH (05:39)
[2023-03-31] MEDS: Lansoprazole 3 MG/ML ORAL SUSPENSION PO SCH (08:14)
[2023-03-31] MEDS: Clopidogrel Bisulfate 75 MG TAB PO SCH (08:15)
[2023-03-31] MEDS: Multivitamin w/Zinc Stress 1 TAB PO SCH (08:15)
[2023-03-31] MEDS: Sacubitril 24MG/Valsartan 26 MG TAB PO SCH ×2 (08:15→20:04)
[2023-03-31] MEDS: traMADol HCl 50 MG TAB PO PRN (08:15)
[2023-03-31] MEDS: Folic Acid 1 MG TAB PO SCH (08:15)
[2023-03-31] MEDS: Digoxin 0.125 MG TAB PO SCH (08:16)
[2023-03-31] MEDS: Aspirin 81 mg Enteric Coated Tablet PO SCH (08:16)
[2023-03-31] MEDS: Magnesium Oxide 400 MG TAB PO SCH ×2 (08:17→20:04)
[2023-03-31] MEDS: Apixaban 5 MG TAB PO SCH ×2 (08:17→20:04)
[2023-03-31] MEDS: Bupropion 150 MG SR.TAB PO SCH (08:17)
[2023-03-31] MEDS: Furosemide 40 MG TAB PO SCH (08:18)
[2023-03-31] MEDS: Potassium Chloride 10 MEQ TAB PO SCH (16:58)
[2023-03-31] MEDS: Atorvastatin Calcium 40 MG TAB PO SCH (20:04)
[2023-04-01 05:13] LABS: Hematocrit 30.3 % (42.0-52.0); Hemoglobin 9.9 g/dL (14.0-18.0); Mean Corpuscular HGB CONC 32.5 g/dL (32.0-36.0); Mean Corpuscular Hemoglobin 31.6 pg (27.0-31.0); Mean Platelet Volume 9.2 fL (7.4-10.4); Platelet Count 263 10x3/uL (130-400); RBC Distribution Width 16.8 % (11.5-14.5); Red Blood Cell (RBC) Count 3.13 mill/uL (4.70-6.10)
[2023-04-01 05:30] LABS: Anion Gap 16 mmol/L (10-20); BUN (Urea Nitrogen) 12 mg/dL (8.4-25.7); Calc. Creatinine Clearance 77 mL/min (70-130); Calcium 9.3 mg/dL (7.8-10.44); Carbon Dioxide 23 mmol/L (23-31); Chloride 100 mmol/L (98-107); Estimated GFR 66; Glucose 92 mg/dL (83-110); Potassium 3.6 mmol/L (3.5-5.1); Sodium 135 mmol/L (136-145)
[2023-04-01] MEDS: Levothyroxine Sodium 125 MCG TAB PO SCH (05:50)
[2023-04-01] MEDS: Lansoprazole 3 MG/ML ORAL SUSPENSION PO SCH (08:16)
[2023-04-01] MEDS: Digoxin 0.125 MG TAB PO SCH (08:17)
[2023-04-01] MEDS: Furosemide 40 MG TAB PO SCH (08:17)
[2023-04-01] MEDS: Magnesium Oxide 400 MG TAB PO SCH ×2 (08:17→20:33)
[2023-04-01] MEDS: Folic Acid 1 MG TAB PO SCH (08:17)
[2023-04-01] MEDS: Sacubitril 24MG/Valsartan 26 MG TAB PO SCH ×2 (08:17→20:32)
[2023-04-01] MEDS: Bupropion 150 MG SR.TAB PO SCH (08:18)
[2023-04-01] MEDS: Clopidogrel Bisulfate 75 MG TAB PO SCH (08:18)
[2023-04-01] MEDS: Apixaban 5 MG TAB PO SCH ×2 (08:18→20:32)
[2023-04-01] MEDS: Multivitamin w/Zinc Stress 1 TAB PO SCH (08:18)
[2023-04-01] MEDS: Aspirin 81 mg Enteric Coated Tablet PO SCH (08:18)
[2023-04-01] MEDS: traMADol HCl 50 MG TAB PO PRN ×2 (12:01→17:16)
[2023-04-01] MEDS: Potassium Chloride 10 MEQ TAB PO SCH (17:17)
[2023-04-01] MEDS: Atorvastatin Calcium 40 MG TAB PO SCH (20:32)
[2023-04-01] MEDS: Lorazepam 0.5 MG TAB PO PRN (20:40)
[2023-04-01] MEDS: Acetaminophen 325 MG TAB PO PRN (20:40)
[2023-04-02] MEDS: Levothyroxine Sodium 125 MCG TAB PO SCH (05:58)
[2023-04-02] MEDS: Lansoprazole 3 MG/ML ORAL SUSPENSION PO SCH (08:45)
[2023-04-02] MEDS: Digoxin 0.125 MG TAB PO SCH (08:49)
[2023-04-02] MEDS: traMADol HCl 50 MG TAB PO PRN (08:49)
[2023-04-02] MEDS: Bupropion 150 MG SR.TAB PO SCH (08:49)
[2023-04-02] MEDS: Multivitamin w/Zinc Stress 1 TAB PO SCH (08:49)
[2023-04-02] MEDS: Folic Acid 1 MG TAB PO SCH (08:49)
[2023-04-02] MEDS: Aspirin 81 mg Enteric Coated Tablet PO SCH (08:49)
[2023-04-02] MEDS: Apixaban 5 MG TAB PO SCH ×2 (08:49→20:16)
[2023-04-02] MEDS: Furosemide 40 MG TAB PO SCH (08:50)
[2023-04-02] MEDS: Sacubitril 24MG/Valsartan 26 MG TAB PO SCH ×2 (08:50→20:16)
[2023-04-02] MEDS: Magnesium Oxide 400 MG TAB PO SCH (08:50)
[2023-04-02] MEDS: Clopidogrel Bisulfate 75 MG TAB PO SCH (08:50)
[2023-04-02] MEDS: Acetaminophen 325 MG TAB PO PRN (13:11)
[2023-04-02] MEDS ORDERED: Diclofenac 1% 100 GM Topical GEL TP SCH (13:45)
[2023-04-02] MEDS: Diclofenac 1% 100 GM Topical GEL TP SCH ×2 (17:43→20:18)
[2023-04-02] MEDS ORDERED: Potassium Chloride 10 MEQ TAB PO SCH (17:45)
[2023-04-02] MEDS ORDERED: FLU VACC QS2023(65UP)/MF59C/PF 60 MCG/0.5 ML SYRINGE IM ONE (17:45)
[2023-04-02] MEDS: Potassium Chloride 10 MEQ TAB PO SCH (17:46)
[2023-04-02] MEDS: Atorvastatin Calcium 40 MG TAB PO SCH (20:16)
[2023-04-02] MEDS: Lorazepam 0.5 MG TAB PO PRN (20:16)
[2023-04-03] MEDS: Levothyroxine Sodium 125 MCG TAB PO SCH (05:32)
[2023-04-03] MEDS: Folic Acid 1 MG TAB PO SCH (08:26)
[2023-04-03] MEDS: Sacubitril 24MG/Valsartan 26 MG TAB PO SCH ×2 (08:26→20:19)
[2023-04-03] MEDS: Multivitamin w/Zinc Stress 1 TAB PO SCH (08:26)
[2023-04-03] MEDS: Apixaban 5 MG TAB PO SCH ×2 (08:26→20:19)
[2023-04-03] MEDS: Bupropion 150 MG SR.TAB PO SCH (08:26)
[2023-04-03] MEDS: Magnesium Oxide 400 MG TAB PO SCH (08:26)
[2023-04-03] MEDS: Aspirin 81 mg Enteric Coated Tablet PO SCH (08:26)
[2023-04-03] MEDS: Lansoprazole 3 MG/ML ORAL SUSPENSION PO SCH (08:27)
[2023-04-03] MEDS: Furosemide 40 MG TAB PO SCH (08:27)
[2023-04-03] MEDS: Digoxin 0.125 MG TAB PO SCH (08:27)
[2023-04-03] MEDS: Clopidogrel Bisulfate 75 MG TAB PO SCH (08:27)
[2023-04-03] MEDS: Diclofenac 1% 100 GM Topical GEL TP SCH ×4 (08:28→20:28)
[2023-04-03] MEDS: traMADol HCl 50 MG TAB PO PRN ×2 (08:35→19:07)
[2023-04-03] MEDS: Acetaminophen 325 MG TAB PO PRN (11:44)
[2023-04-03 16:04] VITALS: BMI 30.5
[2023-04-03] MEDS: Potassium Chloride 10 MEQ TAB PO SCH (17:07)
[2023-04-03] MEDS: Atorvastatin Calcium 40 MG TAB PO SCH (20:19)
[2023-04-04] MEDS: Levothyroxine Sodium 125 MCG TAB PO SCH (05:53)
[2023-04-04] MEDS: Lansoprazole 3 MG/ML ORAL SUSPENSION PO SCH (08:34)
[2023-04-04] MEDS: Aspirin 81 mg Enteric Coated Tablet PO SCH (08:41)
[2023-04-04] MEDS: Apixaban 5 MG TAB PO SCH ×2 (08:41→20:45)
[2023-04-04] MEDS: Folic Acid 1 MG TAB PO SCH (08:41)
[2023-04-04] MEDS: Magnesium Oxide 400 MG TAB PO SCH (08:42)
[2023-04-04] MEDS: Clopidogrel Bisulfate 75 MG TAB PO SCH (08:42)
[2023-04-04] MEDS: Bupropion 150 MG SR.TAB PO SCH (08:42)
[2023-04-04] MEDS: Digoxin 0.125 MG TAB PO SCH (08:42)
[2023-04-04] MEDS: Furosemide 40 MG TAB PO SCH (08:42)
[2023-04-04] MEDS: Multivitamin w/Zinc Stress 1 TAB PO SCH (08:42)
[2023-04-04] MEDS: Diclofenac 1% 100 GM Topical GEL TP SCH ×4 (08:47→20:48)
[2023-04-04] MEDS: Sacubitril 24MG/Valsartan 26 MG TAB PO SCH ×2 (09:08→20:46)
[2023-04-04] MEDS: Potassium Chloride 10 MEQ TAB PO SCH (17:26)
[2023-04-04] MEDS: Atorvastatin Calcium 40 MG TAB PO SCH (20:46)
[2023-04-04] MEDS: traMADol HCl 50 MG TAB PO PRN (20:48)
[2023-04-05] MEDS: Levothyroxine Sodium 125 MCG TAB PO SCH (05:35)
[2023-04-05] MEDS: Digoxin 0.125 MG TAB PO SCH (08:57)
[2023-04-05] MEDS: Folic Acid 1 MG TAB PO SCH (08:57)
[2023-04-05] MEDS: Magnesium Oxide 400 MG TAB PO SCH (08:57)
[2023-04-05] MEDS: Aspirin 81 mg Enteric Coated Tablet PO SCH (08:57)
[2023-04-05] MEDS: Multivitamin w/Zinc Stress 1 TAB PO SCH (08:57)
[2023-04-05] MEDS: Apixaban 5 MG TAB PO SCH ×2 (08:57→20:41)
[2023-04-05] MEDS: Furosemide 40 MG TAB PO SCH (08:57)
[2023-04-05] MEDS: Bupropion 150 MG SR.TAB PO SCH (08:58)
[2023-04-05] MEDS: Lansoprazole 3 MG/ML ORAL SUSPENSION PO SCH (08:58)
[2023-04-05] MEDS: Clopidogrel Bisulfate 75 MG TAB PO SCH (08:58)
[2023-04-05] MEDS: Diclofenac 1% 100 GM Topical GEL TP SCH ×4 (08:58→20:40)
[2023-04-05] MEDS: Sacubitril 24MG/Valsartan 26 MG TAB PO SCH ×2 (08:58→20:41)
[2023-04-05] MEDS: Potassium Chloride 10 MEQ TAB PO SCH (16:57)
[2023-04-05] MEDS: traMADol HCl 50 MG TAB PO PRN (20:40)
[2023-04-05] MEDS: Atorvastatin Calcium 40 MG TAB PO SCH (20:41)
[2023-04-06] MEDS: Levothyroxine Sodium 125 MCG TAB PO SCH (05:16)
[2023-04-06] MEDS: Folic Acid 1 MG TAB PO SCH (08:34)
[2023-04-06] MEDS: Multivitamin w/Zinc Stress 1 TAB PO SCH (08:34)
[2023-04-06] MEDS: Sacubitril 24MG/Valsartan 26 MG TAB PO SCH ×2 (08:34→20:30)
[2023-04-06] MEDS: Bupropion 150 MG SR.TAB PO SCH (08:34)
[2023-04-06] MEDS: Lansoprazole 3 MG/ML ORAL SUSPENSION PO SCH (08:34)
[2023-04-06] MEDS: Clopidogrel Bisulfate 75 MG TAB PO SCH (08:34)
[2023-04-06] MEDS: Digoxin 0.125 MG TAB PO SCH (08:35)
[2023-04-06] MEDS: Diclofenac 1% 100 GM Topical GEL TP SCH ×4 (08:35→20:31)
[2023-04-06] MEDS: Magnesium Oxide 400 MG TAB PO SCH (08:35)
[2023-04-06] MEDS: Aspirin 81 mg Enteric Coated Tablet PO SCH (08:37)
[2023-04-06] MEDS: Apixaban 5 MG TAB PO SCH (08:38)
[2023-04-06] MEDS: Furosemide 40 MG TAB PO SCH (08:40)
[2023-04-06] MEDS: Potassium Chloride 10 MEQ TAB PO SCH (17:07)
[2023-04-06] MEDS: Atorvastatin Calcium 40 MG TAB PO SCH (20:30)
[2023-04-07] MEDS: Levothyroxine Sodium 125 MCG TAB PO SCH (05:08)
[2023-04-07] MEDS: Sacubitril 24MG/Valsartan 26 MG TAB PO SCH (08:12)
[2023-04-07] MEDS: Bupropion 150 MG SR.TAB PO SCH (08:12)
[2023-04-07] MEDS: Furosemide 40 MG TAB PO SCH (08:12)
[2023-04-07] MEDS: Multivitamin w/Zinc Stress 1 TAB PO SCH (08:12)
[2023-04-07] MEDS: Digoxin 0.125 MG TAB PO SCH (08:12)
[2023-04-07] MEDS: Aspirin 81 mg Enteric Coated Tablet PO SCH (08:12)
[2023-04-07] MEDS: Folic Acid 1 MG TAB PO SCH (08:12)
[2023-04-07] MEDS: Magnesium Oxide 400 MG TAB PO SCH (08:12)
[2023-04-07] MEDS: Diclofenac 1% 100 GM Topical GEL TP SCH (08:13)
[2023-04-07] MEDS: Lansoprazole 3 MG/ML ORAL SUSPENSION PO SCH (08:13)
[2023-04-07] MEDS: Clopidogrel Bisulfate 75 MG TAB PO SCH (08:13)
[2023-04-07 08:50] VITALS: TEMP 97.5
[2023-04-07 09:06] VITALS: BP 118/68
== END 2023-04-07 11:20 | disposition home or self-care (01) | DRG 948 ==
LOC: MADMS 16:43
PROVIDERS: ADMIT Family Medicine; ATTEND Family Medicine
DX: R53.81 Other malaise (principal); F03.918 Unspecified dementia, unspecified severity, with other behavioral disturbance; I50.22 Chronic systolic (congestive) heart failure; I48.20 Chronic atrial fibrillation, unspecified; I42.8 Other cardiomyopathies; E03.9 Hypothyroidism, unspecified; K21.9 Gastro-esophageal reflux disease without esophagitis; K74.60 Unspecified cirrhosis of liver; I25.10 Atherosclerotic heart disease of native coronary artery without angina pectoris; Z66 Do not resuscitate; E78.5 Hyperlipidemia, unspecified; I11.0 Hypertensive heart disease with heart failure; F32.A Depression, unspecified; F41.9 Anxiety disorder, unspecified; Z96.652 Presence of left artificial knee joint; D64.9 Anemia, unspecified; W19.XXXD Unspecified fall, subsequent encounter; Z79.82 Long term (current) use of aspirin; Z79.01 Long term (current) use of anticoagulants; Z79.899 Other long term (current) drug therapy; Z95.0 Presence of cardiac pacemaker; Z90.49 Acquired absence of other specified parts of digestive tract; Z98.890 Other specified postprocedural states; S42.101D Fracture of unspecified part of scapula, right shoulder, subsequent encounter for fracture with routine healing; S22.31XD Fracture of one rib, right side, subsequent encounter for fracture with routine healing
CPT/HCPCS: 36415; 80048; 85027

== ENCOUNTER 2023-04-13 14:11 | Outpatient (CLI) | payer MEDICARE, BC | END 2023-04-13 14:12 | disposition home or self-care (01) | LOC: MADRAD 14:11 | PROVIDERS: ATTEND Family Medicine | DX: S22.31XA Fracture of one rib, right side, initial encounter for closed fracture (principal); S42.109A Fracture of unspecified part of scapula, unspecified shoulder, initial encounter for closed fracture ==

== ENCOUNTER 2023-11-02 19:15 | Emergency (ER) | payer MEDICARE, BC ==
[2023-11-02 20:17] LABS: #Basophils 0.1 thou/uL (0.0-0.2); #Lymphocytes 1.3 thou/uL (1.20-3.40); #Monocytes 1.2 thou/uL (0.11-0.59); %Basophils 0.9 % (0.0-1.0); %Eosinophils 0.1 % (0.0-10.0); %Monocytes 13.6 % (0.0-10.0); %Neutrophils 70.4 % (42.0-75.0); ALT (SGPT) 27 U/L (8-55); AST (SGOT) 38 U/L (5-34); Albumin 3.8 g/dL (3.4-4.8); Alkaline Phosphatase 71 U/L (40-110); Anion Gap 18 mmol/L (10-20); BUN (Urea Nitrogen) 42 mg/dL (8.4-25.7); Calc. Creatinine Clearance 0 mL/min (70-130); Calcium 9.1 mg/dL (7.8-10.44); Carbon Dioxide 26 mmol/L (23-31); Chloride 100 mmol/L (98-107); Estimated GFR 49; Globulin 2.4 g/dL (2.4-3.5); Glucose 124 mg/dL (83-110); Hematocrit 28.1 % (42.0-52.0); Hemoglobin 8.3 g/dL (14.0-18.0); INR-International Normal Ratio 1.4; MDiff Complete? YES; Mean Corpuscular HGB CONC 29.8 g/dL (32.0-36.0); Mean Corpuscular Volume 97.5 fl (78.0-98.0); Mean Platelet Volume 11.5 fL (7.4-10.4); Platelet Adequacy Comment Appears Adequate; Platelet Count 135 10x3/uL (130-400); Polychromasia SLIGHT = 2-3 cells (100X) (0-2/hpf); Potassium 4.3 mmol/L (3.5-5.1); Protein, Total 6.2 g/dL (5.8-8.1); Prothrombin Time 17.3 sec (12.0-14.7); RBC Distribution Width 18.4 % (11.5-14.5); Red Blood Cell (RBC) Count 2.88 mill/uL (4.70-6.10); Sodium 140 mmol/L (136-145); White Blood Cell (WBC) Count 8.6 10x3/uL (4.8-10.8)
[2023-11-02 20:18] LABS: PTT 27.4 sec (22.9-36.1)
[2023-11-02 20:21] LABS: Digoxin 1.76 ng/mL (0.8-2.0)
[2023-11-02 20:36] LABS: Bilirubin Negative (Negative); Blood, Urine Negative (Negative); Clarity Clear (Clear); Glucose, Urine (Dipstick) Negative (Negative); Ketone, Urine Negative (Negative); Leukocyte Negative (Negative); Nitrite Negative (Negative); Protein, Urine (Dipstick) Negative (Neg-Trace); Specific Gravity, Urine 1.015 (1.005-1.030)
[2023-11-02 20:40] LABS: CAUTI Indications for Culture Dysuria,urgency,freq; RBC/HPF None Seen HPF (0-3); Squamous Epithelial 0-3 HPF (0-3); WBC/HPF 0-3 HPF (0-3)
[2023-11-02 20:41] LABS: Urine Culture Reflex No No
[2023-11-02] MEDS ORDERED: Sodium Chloride 0.9% 2,000 ML ONE (21:14)
[2023-11-02] MEDS ORDERED: Sodium Chloride 0.9% 1,000 ML ONE (22:49)
[2023-11-02] MEDS ORDERED: Boostrix 0.5 ML (Tdap) VIAL (>/=7 yrs of age) ONE (22:50)
[2023-11-03 00:11] LABS: Hemoglobin 7.5 g/dL (14.0-18.0)
[2023-11-03] MEDS ORDERED: Pantoprazole 40 MG VIAL ONE (00:16)
[2023-11-03 00:42] LABS: Anion Gap 14 mmol/L (10-20); BUN (Urea Nitrogen) 42 mg/dL (8.4-25.7); Calc. Creatinine Clearance 0 mL/min (70-130); Calcium 7.7 mg/dL (7.8-10.44); Carbon Dioxide 25 mmol/L (23-31); Chloride 107 mmol/L (98-107); Estimated GFR 72; Glucose 104 mg/dL (83-110); Potassium 3.4 mmol/L (3.5-5.1); Sodium 143 mmol/L (136-145)
== END 2023-11-03 00:43 | disposition short-term general hospital (02) ==
LOC: MADERS 19:15
DX: K92.2 Gastrointestinal hemorrhage, unspecified (principal); N17.9 Acute kidney failure, unspecified; D50.0 Iron deficiency anemia secondary to blood loss (chronic); I95.9 Hypotension, unspecified; S42.122A Displaced fracture of acromial process, left shoulder, initial encounter for closed fracture; S40.811A Abrasion of right upper arm, initial encounter; R55 Syncope and collapse; I48.91 Unspecified atrial fibrillation; E78.5 Hyperlipidemia, unspecified; I11.0 Hypertensive heart disease with heart failure; I50.9 Heart failure, unspecified; Z79.899 Other long term (current) drug therapy; Z23 Encounter for immunization; Z79.82 Long term (current) use of aspirin
CPT/HCPCS: 70450; 72125; 80053; 80162; 81001; 85025; 85610; 85730; 90471; 90715; 93005; 96361; 96374; C9113; J7050

== ENCOUNTER 2023-12-08 12:15 | Outpatient (CLI) | payer MEDICARE, BC | END 2023-12-08 12:16 | disposition home or self-care (01) | LOC: MADRAD 12:15 | PROVIDERS: ATTEND Family Medicine | DX: S42.125 Nondisplaced fracture of acromial process, left shoulder (principal) ==